=== PATIENT | female | born 1950 | race Caucasian/White ===

== ENCOUNTER → 2017-01-06 | Outpatient (CLI) | payer OTHER, MEDICARE ==
[~2017-01-06] MED LIST: CALCTAB7 PO; FISHOIL PO; HYDR200T5 PO; ZYBKIT PO
--- NOTE | 2017-01-06 12:36 | MAMMOGRAPHY REPORT ---
BILATERAL DIGITAL DIAGNOSTIC MAMMOGRAM TOMOSYNTHESIS WITH CAD AND TARGETED LEFT ULTRASOUND: 01/06/2017 CLINICAL HISTORY: 6 Month Follow-up. TECHNIQUE: Breast tomosynthesis in addition to standard 2D mammography was performed. Current study was also evaluated with a Computer Aided Detection (CAD) system. Bilateral CC and MLO 2-D and bronson synthesis images were obtained. COMPARISON: Comparison is made to exams dated: 07/05/2016 ultrasound - [facility], 07/05/2016 mammogram, 01/05/2016 ultrasound, 01/05/2016 mammogram, 12/25/2015 mammogram, and 12/24/2014 mamm ogram - [facility]. BREAST COMPOSITION: There are scattered areas of fibroglandular density in both breasts. FINDINGS: There are no suspicious masses, calcifications, or areas of architectural distortion seen mammographically. There has been no significant interval change compared to prior exams. The prev iously seen nodular asymmetry within the left slightly inferior breast on the MLO view is less promi nent and appears similar to the 07/05/2016 exam. Targeted ultrasound was performed of the area of the previously seen masses. In the left breast at 12:00 periareolar region, again noted is a hypoechoic circumscribed mass which measures 3 x 2 x 3 mm , stable compared to the 07/05/2016 exam and is benign given the morphology and stability and likely r epresents a complicated cyst. In the left breast at 3:00, 2 cm from the nipple, again noted is a hy poechoic circumscribed parallel mass which is stable dating back to the December 2015 exam, currentl y measuring 5 x 3 x 5 mm, previously measuring 5 x 4 x 5 mm. Given the benign morphology and stabil ity, the mass is considered benign and may represent a complicated cyst versus benign solid mass suc h as a fibroadenoma. A round anechoic benign cyst measuring 3 x 3 mm is again noted in the left josé manuel ast at 3:00, 1 cm from the nipple. IMPRESSION: ACR BI-RADS CATEGORY 2: BENIGN, TARGETED ULTRASOUND ACR BI-RADS CATEGORY 2: BENIGN The previously seen small left breast masses are stable, and are considered benign given the morphol ogy and stability and may represent complicated cysts. There is no mammographic or targeted sonograp hic evidence of malignancy. A 1 year screening mammogram is recommended. The patient has been verba lly notified of the results. Approximately 10% of breast cancers are not detected with mammography. A negative mammographic repor t should not delay biopsy if a clinically suggestive mass is present. Leann Jimenez M.D. ah/:01/06/2017 08:15:40 Barrel Plater: Selena DEJESUS)(Antonia), [facility] letter sent: Normal 1/2 BI-RADS Code: ACR BI-RADS Category 2: Benign Ultrasound BI-RADS: ACR BI-RADS Category 2: Benign
== END | disposition home or self-care (01) ==
LOC: C.MAMM 07:43
PROVIDERS: ATTEND Internal Medicine
DX: N63 Unspecified lump in breast (principal)

== ENCOUNTER → 2018-01-11 | Outpatient (CLI) | payer OTHER, MEDICARE ==
--- NOTE | 2018-01-12 15:08 | MAMMOGRAPHY REPORT ---
BILATERAL DIGITAL SCREENING MAMMOGRAM TOMOSYNTHESIS WITH CAD: 01/11/2018 CLINICAL HISTORY: Routine screening. Patient has no complaints. TECHNIQUE: Breast tomosynthesis in addition to standard 2D mammography was performed. Current study was also evaluated with a Computer Aided Detection (CAD) system. COMPARISON: Comparison is made to exams dated: 01/06/2017 mammogram, 12/25/2015 mammogram, 12/24/2014 ma mmogram, 12/21/2013 mammogram, 12/20/2012 mammogram - [facility], and 07/26/2011 mammo gram. BREAST COMPOSITION: There are scattered areas of fibroglandular density in both breasts. FINDINGS: There are stable asymmetries in the inferior and lateral left breast. No new suspicious ma ss, architectural distortion or cluster of microcalcifications is seen. IMPRESSION: ACR BI-RADS CATEGORY 1: NEGATIVE There is no mammographic evidence of malignancy. A 1 year screening mammogram is recommended. The pa tient will receive written notification of the results. Approximately 10% of breast cancers are not detected with mammography. A negative mammographic report should not delay biopsy if a clinically suggestive mass is present. Shauna Hameed M.D. ay/:01/11/2018 15:48:30 Exercise Physiology Professor: Evelyne CEJA(Lori)(Antonia), [facility] letter sent: Normal 1/2 BI-RADS Code: ACR BI-RADS Category 1: Negative
== END | disposition home or self-care (01) ==
LOC: C.MAMM 14:37
PROVIDERS: ATTEND Internal Medicine
DX: Z12.31 Encounter for screening mammogram for malignant neoplasm of breast (principal)

== ENCOUNTER 2024-10-12 19:00 | Inpatient (IN) ==
[2024-10-12] MEDS: SODIUM CHLORIDE 0.9% 1,000 ML IV ONE (21:28)
[2024-10-12] MEDS: PANTOprazole 80 MG in DEXTROSE 5% 100 ML IV ONE (21:29)
[2024-10-12] MEDS: PANTOPRAZOLE BOLUS/DRIP IV STA (21:34)
[2024-10-12] MEDS: PANTOprazole 40 MG in DEXTROSE 5% MINI-B 100 ML IV SCH (21:47)
[2024-10-12 21:59] LABS: Basophils # (auto) 0.05 K/uL (0.00-0.20); Basophils % (auto) 0.4 %; Eosinophils # (auto) 0.11 K/uL (0.00-0.50); Eosinophils % (auto) 0.9 %; Hematocrit (blood only) 22.2 % (37.0-47.0); Hemoglobin 7.3 g/dl (12.0-16.0); Immature Granulocytes # (auto) 0.23 K/uL (0.01-0.20); Immature Granulocytes % (auto) 1.9 %; Lymphocytes # (auto) 1.67 K/uL (1.20-3.40); Lymphocytes % (auto) 14.1 %; Mean Corpuscular Hemoglobin 30.9 pg (25.0-34.0); Mean Corpuscular Hgb Conc 32.9 g/dL (32.0-36.0); Mean Corpuscular Volume 94.1 fL (80.0-100.0); Mean Platelet Volume 10.3 fL (9.4-12.4); Monocytes # (auto) 0.85 K/uL (0.11-0.59); Monocytes % (auto) 7.2 %; Neutrophils # (auto) 8.97 K/uL (1.40-6.50); Neutrophils % (auto) 75.5 %; Platelet Count 368 K/uL (130-400); RDW Coefficient of Variation 13.6 % (11.5-14.5); RDW Standard Deviation 46.1 fL (36.4-46.3); Red Blood Count 2.36 M/uL (4.20-5.40); White Blood Count 11.88 K/ul (4.8-10.8)
[2024-10-12 22:04] LABS: Albumin Globulin Ratio 1.5 (0.9-2); Albumin Level 3.4 gm/dl (3.4-5.0); BUN Creatinine Ratio 48.1 (10-20); Bilirubin,Total 0.6 mg/dl (0.2-1.0); Creatinine Clr Calc Pharmacy 33.9 ml/min; Globulin 2.2 gm/dl (2.5-4.0); Potassium 4.6 mmol/L (3.5-5.1); Total Protein 5.6 gm/dl (6.0-8.3)
--- NOTE | 2024-10-12 22:15 | History & Physical Report ---
Date of Service October 12, 2024 Assessment & Plan (1) GI bleed: (2) Fracture of head of humerus: (3) Fall: Plan GI bleed - Per patient several dark BMs, feeling feint, weak, and dizzy - Hgb 7.3 in ED, consent for transfusion completed, transfuse Hgb < 7 - 1L NSS given in ED - Maintain 2 large bore IVs, Protonix drip continued - GI consult placed, NPO status - CBC Q6H, CMP QAM Humerus head/neck fracture/Fall - Met with orthopedics on Tuesday - Next appointment with ortho 10/15 - CK ordered - Consider PT/OT History of Present Illness Chief Complaint: GI bleed, dizziness Primary Care Provider: Key Flores DO Katie Roche is a 74 y/o F with a past medical history of cutaneous lupus on hydroxychloroquine, Hx of cancerous polyp s/p removal and yearly colonoscopies, osteoarthritis and recent humerus fracture, arriving to [facility] [place] ED due to dizziness and feeling lightheaded on route to the bathroom when she tripped over a laundry basket and had to lower herself to the floor around 10:30 am. Patient reports that she was unable to get up and had several dark colored BMs until approximately 5pm when her son arrived and was able to transport her to the ED. Patient was recently in the ED last week after she tripped over the same laundry basket and fell on her head and right shoulder causing no head trauma per scans but did have a R. humerus head and neck fracture, and is currently following with orthopedics, with her next appointment on 10/15. Patient reports that last week after discharge she had one incident of nausea and dark colored emesis, but today denies any recent abdominal pain, nausea, and vomiting. Patient also denies chest pain, palpitations, SOB, cough, wheeze, headache and blurry vision. Patient reports that her dizziness and feelings of weakness have resolved, but feels that if she were to sit up quickly or stand symptoms would reoccur. Patient is not currently taking any blood thinners, but reports using Ibuprofen frequently for a few days after her shoulder trauma. Patient also endorses some feelings of reflux and tongue swelling that started after she collapsed in the bathroom this morning. Patient denies these symptoms currently. Allergies Allergy/AdvReac Type Severity Reaction Status Date / Time codeine Allergy Mild itching Verified 09/27/24 09:16 Home Medications Medication Instructions Recorded Confirmed Type bacitracin 500 unit/gram topical 1 applic topical BID PRN Rash 07/20/22 10/12/24 History ointment hydroxychloroquine 200 mg tablet 200 mg PO QAM 09/27/24 10/12/24 History (Plaquenil) lisinopril 20 mg tablet 20 mg PO DAILY 09/27/24 10/12/24 History metformin 500 mg tablet 1,000 mg PO DAILY 09/27/24 10/12/24 History sertraline 25 mg tablet (Zoloft) 25 mg PO DAILY 09/27/24 10/12/24 History Past Med/Surg History Problem List GI bleed Fracture of head of humerus (Acute) Fall (Acute) Dupuytrens contracture Osteoarthritis Acquired deviated nasal septum Medical History Anxiety and depression Diabetes Sleep apnea no compliant with cpap Cutaneous lupus erythematosus Follows [facility] at [facility] - taking Plaquenil Hypertension pt denies Surgical History History of colonoscopy Hx of bilateral cataract extraction History of surgery on wrist right History of knee surgery left History of ankle surgery right -broken History of appendectomy History of tonsillectomy Family History Mother Hypertension Cancer Father Allergies Other No family history of adverse response to anesthesia No family history of bleeding disorder Social History Smoking Status: Former smoker Tobacco Type: Cigarettes Cigarettes Per Day: 1/2 pk/ day; Second Hand Exposure: No; Do You Dip or Chew Tobacco: No; Hx Alcohol Use: Yes Alcohol type: hard liquor Hx Substance Use: No Preferred Language: Tanzanian Communication Ability: Effective Nuclear Reactor Operator Required: No Beliefs That Will Affect Care: None Current Living Situation: Alone Feels Safe at Home: Yes Assistive Devices: None Review of Systems Review of Systems: All systems reviewed & are unremarkable except as noted in HPI & below Physical Exam Physical Exam: General: patient resting comfortably, NAD, non-toxic in appearance, answers questions appropriately. Skin: warm, dry, intact HEENT: NC/AT, anicteric sclera, conjunctiva without injection, moist mucus membranes. Heart: +S1/S2, regular, no m/r/g Lungs: equal air entry bilaterally, no rales/rhonchi/wheezes Abd: +BS, soft, NT/ND Ext: warm, no clubbing/cyanosis or edema Neuro: nonfocal, speech intact, no facial droop, moving all extremities. Results & Data Results & Data Vital Signs (Past 12 Hours) Vital Signs Temp Pulse Pulse Resp BP BP Pulse Ox 10/12/24 21:05 98 H 18 140/80 100 10/12/24 21:05 98 H 20 100 10/12/24 19:10 93 H 17 130/91 100 10/12/24 19:10 36.5 C 94 H 18 144/68 H 10/12/24 19:06 96 H O2 Del Method 10/12/24 21:05 Room Air 10/12/24 21:05 Room Air 10/12/24 19:10 Room Air 10/12/24 19:10 Room Air 10/12/24 19:06 Laboratory Results Laboratory Results WBC 11.88 K/ul (4.8-10.8) H 10/12/24 19:07 RBC 2.36 M/uL (4.20-5.40) L 10/12/24 19:07 Hgb 7.3 g/dl (12.0-16.0) L 10/12/24 19:07 Hct 22.2 % (37.0-47.0) L 10/12/24 19:07 MCV 94.1 fL (80.0-100.0) 10/12/24 19:07 MCH 30.9 pg (25.0-34.0) 10/12/24 19:07 MCHC 32.9 g/dL (32.0-36.0) 10/12/24 19:07 RDW Std Deviation 46.1 fL (36.4-46.3) 10/12/24 19:07 RDW Coeff of Melody 13.6 % (11.5-14.5) 10/12/24 19:07 Plt Count 368 K/uL (130-400) 10/12/24 19:07 MPV 10.3 fL (9.4-12.4) 10/12/24 19:07 Immature Gran % (Auto) 1.9 % 10/12/24 19:07 Neut % (Auto) 75.5 % 10/12/24 19:07 Lymph % (Auto) 14.1 % 10/12/24 19:07 [place] % (Auto) 7.2 % 10/12/24 19:07 Eos % (Auto) 0.9 % 10/12/24 19:07 Baso % (Auto) 0.4 % 10/12/24 19:07 Neut # (Auto) 8.97 K/uL (1.40-6.50) H 10/12/24 19:07 Lymph # (Auto) 1.67 K/uL (1.20-3.40) 10/12/24 19:07 [place] # (Auto) 0.85 K/uL (0.11-0.59) H 10/12/24 19:07 Eos # (Auto) 0.11 K/uL (0.00-0.50) 10/12/24 19:07 Baso # (Auto) 0.05 K/uL (0.00-0.20) 10/12/24 19:07 Immature Gran # (Auto) 0.23 K/uL (0.01-0.20) H 10/12/24 19:07 Polychromasia 1+ 10/12/24 19:07 PT 11.6 Seconds (9.0-12.0) 10/12/24 19:07 INR 1.1 (0.9-1.1) 10/12/24 19:07 APTT 20 Seconds (21-31) L 10/12/24 19:07 PTT Ratio 0.7 10/12/24 19:07 Sodium 134 mmol/L (136-145) L 10/12/24 19:07 Potassium 4.6 mmol/L (3.5-5.1) 10/12/24 19:07 Chloride 101 mmol/L (98-107) 10/12/24 19:07 Carbon Dioxide 20 mmol/L (21-32) L 10/12/24 19:07 Anion Gap 13 (3-11) H 10/12/24 19:07 BUN 78 mg/dl (6-23) H 10/12/24 19:07 Creatinine 1.62 mg/dl (0.6-1.2) H 10/12/24 19:07 Est Cr Clr Drug Dosing 33.9 ml/min 10/12/24 19:07 eGFR 33.34 10/12/24 19:07 BUN/Creatinine Ratio 48.1 (10-20) H 10/12/24 19:07 Glucose 151 mg/dl (70-99(Fasting)) H 10/12/24 19:07 Calcium 9.0 mg/dl (8.6-10.3) 10/12/24 19:07 Total Bilirubin 0.6 mg/dl (0.2-1.0) 10/12/24 19:07 AST 39 U/L (13-39) 10/12/24 19:07 ALT 47 U/L (7-52) 10/12/24 19:07 Alkaline Phosphatase 47 U/L (34-104) 10/12/24 19:07 Total Protein 5.6 gm/dl (6.0-8.3) L 10/12/24 19:07 Albumin 3.4 gm/dl (3.4-5.0) 10/12/24 19:07 Globulin 2.2 gm/dl (2.5-4.0) L 10/12/24 19:07 Albumin/Globulin Ratio 1.5 (0.9-2) 10/12/24 19:07 POC Stool Occult Blood Positive (Negative) A 10/12/24 21:31 Blood Type A Negative 10/12/24 21:12 Antibody Screen NEGATIVE 10/12/24 21:12 Supervising Physician Co-Signing Physician Notes Patient seen and examined, chart reviewed, case discussed with Dr. Cabral and I agree with the assessment and plan as above. In brief, patient was recently seen in the ER following a fall resulting in a right humerus fracture with sling in place. She has taken several doses of Excedrin for pain management but has overall been taking Tylenol. Today she had multiple episodes of black stools, weakness with inability to get off the floor. No nausea or vomiting. No abdominal pain. NO CP/SOB/dizziness or syncope. No anti-platelet or anticoagulation. No history of liver disease. Patient had a routine screening colonoscopy in the Spring 2023 and had a polyp removed which she was told was malignant - has followup [place] scheduled for 1 year. On exam she is resting comfortably, NAD Skin - mild pallor noted of skin, palms and oral mucosa HEENT - MMM, Neck supple Heart - +S1/S2, regular, tachycardic Lungs - CTA Abd - +BS, soft, NT/ND Ext - warm, well perfused, no clubbing/cyanosis or edema Labs and images reviewed. Patient with normochromic/normocytic anemia with Hgb=7.3 - unknown baseline. BUN elevated at 78 Assessment/Plan 74yo female presenting with weakness, melenic stools - suspect GIB, likely upper GI source. Patient is not on blood thinners or anti-platelet agents. No known liver disease. -Admit to medical with telemetry -Maintain 2 PIVs -Keep NPO -Continue Protonix gtt -Trend CBC q 6 hours - transfuse for ongoing bleed, symptomatic anemia or Hgb < 7. Consent obtained -GI consultation appreciated -Remainder as above Resident Activity Tracking Resident Involvement: Resident Care Provided Care Provided: Adult Hospital Medicine (2) Fracture of head of humerus Encounter type: initial encounter Fracture type: closed Laterality: right Qualified Code(s): S42.291A - Other displaced fracture of upper end of right humerus, initial encounter for closed fracture (3) Fall Encounter type: initial encounter Qualified Code(s): W19.XXXA - Unspecified fall, initial encounter
[2024-10-12 22:21] LABS: Polychromasia 1+
[2024-10-12 22:38] LABS: INR 1.1 (0.9-1.1); Partial Thromboplastin Ratio 0.7; Partial Thromboplastin Time 20 Seconds (21-31); Prothrombin Time 11.6 Seconds (9.0-12.0)
--- NOTE | 2024-10-13 00:27 | Billing Data ---
Date of Service October 12, 2024 Coding Level of Care Code 57754 INT INP/OBS CARE
[2024-10-13] MEDS ORDERED: ONDANSETRON INJ 2 MG/ML 2 ML VIAL IV PRN (01:15)
[2024-10-13 01:44] LABS: Hematocrit (blood only) 19.7 % (37.0-47.0); Hemoglobin 6.6 g/dl (12.0-16.0); Mean Corpuscular Hemoglobin 31.3 pg (25.0-34.0); Mean Corpuscular Hgb Conc 33.5 g/dL (32.0-36.0); Mean Corpuscular Volume 93.4 fL (80.0-100.0); Mean Platelet Volume 9.8 fL (9.4-12.4); Platelet Count 362 K/uL (130-400); RDW Coefficient of Variation 13.6 % (11.5-14.5); RDW Standard Deviation 46.5 fL (36.4-46.3); Red Blood Count 2.11 M/uL (4.20-5.40); White Blood Count 12.23 K/ul (4.8-10.8)
[2024-10-13] MEDS ORDERED: SODIUM CHLORIDE 0.9% 50 ML IV PRN ×2 (01:47→08:51)
[2024-10-13] MEDS ORDERED: SODIUM CHLORIDE 0.9% 100 ML IV PRN ×2 (01:47→08:51)
[2024-10-13 01:56] LABS: Albumin Globulin Ratio 1.5 (0.9-2); Albumin Level 3.2 gm/dl (3.4-5.0); BUN Creatinine Ratio 46.5 (10-20); Bilirubin,Total 0.5 mg/dl (0.2-1.0); Calcium 8.7 mg/dl (8.6-10.3); Creatinine Clr Calc Pharmacy 34.6 ml/min; Globulin 2.1 gm/dl (2.5-4.0); Potassium 4.6 mmol/L (3.5-5.1); Total Protein 5.3 gm/dl (6.0-8.3)
--- NOTE | 2024-10-13 03:17 | Emergency Department Note ---
Impression & Plan Upper gastrointestinal hemorrhage, Fall ED Provider Note CHIEF COMPLAINT: GI bleed HISTORY OF PRESENT ILLNESS: This 74-year-old female patient with PMH of ETOH use heavily presents to the emergency department with complaints of a GI bleed. The patient states she has been passing dark stools today. She has not had a bowel movement in about a week, but was drinking heavily last week after she found out that [place] won the election. Patient proceeded to fall and injure herself, fracturing her right shoulder. Patient is currently in a sling. She states she has been taking ibuprofen for the pain quite a bit recently. REVIEW OF SYSTEMS: A review of systems was performed with positives and pertinent negatives listed in the history of present illness. 10 systems were reviewed and are otherwise negative. ALLERGIES: see below MEDICATIONS: see below PMH: see below SOCIAL HISTORY: see below DDx: Esophageal varices, peptic ulcer disease, esophageal mass, probably alcoholic liver disease, dehydration, among others. PHYSICAL EXAM: Vital signs reviewed. General: Chronically ill-appearing 74-year-old female, in no significant distress. BLE with dried melanotic stool HEENT: No scleral icterus, PERRLA, neck supple. MMM Cardiovascular: Regular rate and rhythm, no extra sounds. Pulmonary: Clear to auscultation bilaterally, normal work of breathing. Abdomen: Soft, nontender, nondistended, positive bowel sounds. Musculoskeletal: Atraumatic, no peripheral edema. Rectal: Melanotic stool, no gross blood. Guaiac positive. Neurologic: Patient awake alert and oriented x 3, speech is clear Skin: Warm, dry, no rash EMERGENCY DEPARTMENT COURSE/MDM: This patient was evaluated and appeared to be in no significant distress. IV access was obtained and laboratory work was drawn. Patient was placed on the monitoring and evaluation advisor is noted to be in a normal sinus rhythm. Hemoccult is positive. Patient was started on a Protonix bolus and drip. Hemoglobin is noted to be 9.1. Type and screen have been examined. Patient was hydrated with normal saline solution. Case has been discussed with hospitalist service, Dr. Duran, who will evaluate the patient for admission and further management. Patient and family are aware of plan and agreed. MONITORING: An order for cardiac monitoring was placed and the patient is noted to be in a normal sinus rhythm at 98 beats per minute. EKG: To my interpretation reveals normal sinus rhythm at 95 bpm. QTc of 469. No PVC, no PAC. DISPOSITION: Admission Past Med/Surg History Problem List (Updated 10/14/24 @ 01:08 by Gifty Moore MD) Upper gastrointestinal hemorrhage (Acute) GI bleed Fracture of head of humerus (Acute) Fall (Acute) Dupuytrens contracture Osteoarthritis Acquired deviated nasal septum Medical History Anxiety and depression Diabetes Sleep apnea no compliant with cpap Cutaneous lupus erythematosus Follows PA at [facility] - taking Plaquenil Hypertension pt denies Surgical History History of colonoscopy Hx of bilateral cataract extraction History of surgery on wrist right History of knee surgery left History of ankle surgery right -broken History of appendectomy History of tonsillectomy Family History Mother Hypertension Cancer Father Allergies Other No family history of adverse response to anesthesia No family history of bleeding disorder Social History Smoking Status: Former smoker Tobacco Type: Cigarettes Cigarettes Per Day: 1/2 pk/ day; Smoking End Date: approximately 3 years ago; Second Hand Exposure: No; Do You Dip or Chew Tobacco: No; Hx Alcohol Use: Yes Alcohol type: hard liquor Hx Substance Use: No Preferred Language: Faroese Communication Ability: Effective Industrial [employer] Supervisor Required: No Beliefs That Will Affect Care: None Current Living Situation: Family Current Living Situation Comment: lives with son Other Information That Helps Us Care for You: No Feels Safe at Home: Yes Safety Concerns: Feels Safe At This Time Assistive Devices: Glasses Allergies Allergies Allergy/AdvReac Type Severity Reaction Status Date / Time codeine Allergy Mild itching Verified 09/27/24 09:16 Home Meds Home Medications Medication Instructions Recorded Confirmed bacitracin 500 unit/gram topical 1 applic topical BID PRN Rash 07/20/22 10/12/24 ointment hydroxychloroquine 200 mg tablet 200 mg PO QAM 09/27/24 10/12/24 (Plaquenil) lisinopril 20 mg tablet 20 mg PO DAILY 09/27/24 10/12/24 metformin 500 mg tablet 1,000 mg PO DAILY 09/27/24 10/12/24 sertraline 25 mg tablet (Zoloft) 25 mg PO DAILY 09/27/24 10/12/24 Results & Data (ED) Vital Signs Vital Signs - 24 hr 10/13/24 01:13 10/13/24 01:17 10/13/24 01:30 Temperature 36.8 C Temperature Source Oral Pulse Rate 97 H Pulse Rate [Apical] 95 H Respiratory Rate 18 Respiratory Effort / Characteristics Non-Labored Spontaneous Respiratory Depth Normal Respiratory Pattern Regular Blood Pressure Blood Pressure [Left Arm] 105/62 Blood Pressure Mean Blood Pressure Mean [Left Arm] 76 Blood Pressure Position Blood Pressure Position [Left Arm] Lying Pulse Oximetry 98 Oxygen Delivery Method Room Air Room Air EWS Level of Consciousness - Last Result EWS Temperature - Last Result EWS Respiratory Rate - Last Result EWS Oxygen Saturation - Last Result EWS Oxygen in Use - Last Result EWS Score EWS Clinical Risk 10/13/24 02:31 10/13/24 02:52 10/13/24 02:53 Temperature 36.6 C 36.5 C Temperature Source Axillary Axillary Pulse Rate 93 H 100 H Pulse Rate [Apical] Respiratory Rate 18 16 Respiratory Effort / Characteristics Respiratory Depth Respiratory Pattern Blood Pressure 94/67 L 91/57 L Blood Pressure [Left Arm] Blood Pressure Mean 76 68 Blood Pressure Mean [Left Arm] Blood Pressure Position Lying Lying Blood Pressure Position [Left Arm] Pulse Oximetry 98 97 Oxygen Delivery Method EWS Level of Consciousness - Last Result Spontaneously Alert EWS Temperature - Last Result 36.6 EWS Respiratory Rate - Last Result 18 EWS Oxygen Saturation - Last Result 98 EWS Oxygen in Use - Last Result No EWS Score 3 EWS Clinical Risk Moderate Risk 10/13/24 03:07 10/13/24 03:08 10/13/24 03:08 Temperature 36.9 C 36.9 C Temperature Source Oral Axillary Pulse Rate 96 H 96 H Pulse Rate [Apical] Respiratory Rate 18 18 Respiratory Effort / Characteristics Respiratory Depth Respiratory Pattern Blood Pressure 110/74 110/74 Blood Pressure [Left Arm] Blood Pressure Mean 86 86 Blood Pressure Mean [Left Arm] Blood Pressure Position Semi-fowlers Blood Pressure Position [Left Arm] Pulse Oximetry 97 97 Oxygen Delivery Method EWS Level of Consciousness - Last Result Spontaneously Alert EWS Temperature - Last Result 36.9 EWS Respiratory Rate - Last Result 18 EWS Oxygen Saturation - Last Result 97 EWS Oxygen in Use - Last Result No EWS Score 2 EWS Clinical Risk Low Risk 10/13/24 03:38 10/13/24 04:38 10/13/24 05:31 Temperature 36.7 C 36.8 C 36.6 C Temperature Source Axillary Axillary Axillary Pulse Rate 93 H 95 H 98 H Pulse Rate [Apical] Respiratory Rate 18 16 18 Respiratory Effort / Characteristics Respiratory Depth Respiratory Pattern Blood Pressure 128/81 132/80 129/81 Blood Pressure [Left Arm] Blood Pressure Mean 96 97 97 Blood Pressure Mean [Left Arm] Blood Pressure Position Semi-fowlers Semi-fowlers Blood Pressure Position [Left Arm] Pulse Oximetry 99 100 96 Oxygen Delivery Method EWS Level of Consciousness - Last Result EWS Temperature - Last Result EWS Respiratory Rate - Last Result EWS Oxygen Saturation - Last Result EWS Oxygen in Use - Last Result EWS Score EWS Clinical Risk 10/13/24 05:51 10/13/24 06:10 10/13/24 06:25 Temperature 36.5 C 36.5 C 36.5 C Temperature Source Oral Oral Oral Pulse Rate 84 89 94 H Pulse Rate [Apical] Respiratory Rate 18 18 18 Respiratory Effort / Characteristics Respiratory Depth Respiratory Pattern Blood Pressure 121/71 125/72 130/83 Blood Pressure [Left Arm] Blood Pressure Mean 87 89 98 Blood Pressure Mean [Left Arm] Blood Pressure Position Blood Pressure Position [Left Arm] Pulse Oximetry 99 98 95 Oxygen Delivery Method EWS Level of Consciousness - Last Result EWS Temperature - Last Result EWS Respiratory Rate - Last Result EWS Oxygen Saturation - Last Result EWS Oxygen in Use - Last Result EWS Score EWS Clinical Risk 10/13/24 06:55 10/13/24 06:55 10/13/24 07:00 Temperature 36.5 C 36.7 C Temperature Source Oral Axillary Pulse Rate 94 H 93 H 88 Pulse Rate [Apical] Respiratory Rate 20 18 Respiratory Effort / Characteristics Respiratory Depth Respiratory Pattern Blood Pressure 122/78 124/77 Blood Pressure [Left Arm] Blood Pressure Mean 92 92 Blood Pressure Mean [Left Arm] Blood Pressure Position Semi-fowlers Blood Pressure Position [Left Arm] Pulse Oximetry 100 99 Oxygen Delivery Method EWS Level of Consciousness - Last Result EWS Temperature - Last Result EWS Respiratory Rate - Last Result EWS Oxygen Saturation - Last Result EWS Oxygen in Use - Last Result EWS Score EWS Clinical Risk 10/13/24 07:55 Temperature 36.5 C Temperature Source Axillary Pulse Rate 95 H Pulse Rate [Apical] Respiratory Rate 16 Respiratory Effort / Characteristics Respiratory Depth Respiratory Pattern Blood Pressure 116/78 Blood Pressure [Left Arm] Blood Pressure Mean 90 Blood Pressure Mean [Left Arm] Blood Pressure Position Lying Blood Pressure Position [Left Arm] Pulse Oximetry 97 Oxygen Delivery Method EWS Level of Consciousness - Last Result EWS Temperature - Last Result EWS Respiratory Rate - Last Result EWS Oxygen Saturation - Last Result EWS Oxygen in Use - Last Result EWS Score EWS Clinical Risk Home Medications Current Medication List: was personally reviewed by me Laboratory Data Attestation: I reviewed the patient's lab results. 10/13/24 19:32 10/13/24 01:18 Lab Results 10/12/24 10/12/24 10/12/24 Range/Units 19:07 21:12 21:31 WBC 11.88 H (4.8-10.8) K/ul RBC 2.36 L (4.20-5.40) M/uL Hgb 7.3 L (12.0-16.0) g/dl Hct 22.2 L (37.0-47.0) % MCV 94.1 (80.0-100.0) fL MCH 30.9 (25.0-34.0) pg MCHC 32.9 (32.0-36.0) g/dL RDW Std Deviation 46.1 (36.4-46.3) fL RDW Coeff of Melody 13.6 (11.5-14.5) % Plt Count 368 (130-400) K/uL MPV 10.3 (9.4-12.4) fL Immature Gran % (Auto) 1.9 % Neut % (Auto) 75.5 % Lymph % (Auto) 14.1 % [place] % (Auto) 7.2 % Eos % (Auto) 0.9 % Baso % (Auto) 0.4 % Neut # (Auto) 8.97 H (1.40-6.50) K/uL Lymph # (Auto) 1.67 (1.20-3.40) K/uL [place] # (Auto) 0.85 H (0.11-0.59) K/uL Eos # (Auto) 0.11 (0.00-0.50) K/uL Baso # (Auto) 0.05 (0.00-0.20) K/uL Immature Gran # (Auto) 0.23 H (0.01-0.20) K/uL Polychromasia 1+ PT 11.6 (9.0-12.0) Seconds INR 1.1 (0.9-1.1) APTT 20 L (21-31) Seconds PTT Ratio 0.7 Sodium 134 L (136-145) mmol/L Potassium 4.6 (3.5-5.1) mmol/L Chloride 101 (98-107) mmol/L Carbon Dioxide 20 L (21-32) mmol/L Anion Gap 13 H (3-11) BUN 78 H (6-23) mg/dl Creatinine 1.62 H (0.6-1.2) mg/dl Est Cr Clr Drug Dosing 33.9 ml/min eGFR 33.34 BUN/Creatinine Ratio 48.1 H (10-20) Glucose 151 H (70-99(Fasting)) mg/dl Calcium 9.0 (8.6-10.3) mg/dl Total Bilirubin 0.6 (0.2-1.0) mg/dl AST 39 (13-39) U/L ALT 47 (7-52) U/L Alkaline Phosphatase 47 (34-104) U/L Total Creatine Kinase 235 H (26-192) U/L Total Protein 5.6 L (6.0-8.3) gm/dl Albumin 3.4 (3.4-5.0) gm/dl Globulin 2.2 L (2.5-4.0) gm/dl Albumin/Globulin Ratio 1.5 (0.9-2) POC Stool Occult Blood Positive A (Negative) Blood Type A Negative Blood Type Recheck Antibody Screen NEGATIVE Crossmatch See Detail 10/13/24 10/13/24 Range/Units 01:18 09:32 WBC 12.23 H 13.01 H (4.8-10.8) K/ul RBC 2.11 L 3.12 L (4.20-5.40) M/uL Hgb 6.6 L* 9.3 L (12.0-16.0) g/dl Hct 19.7 L* 27.3 L (37.0-47.0) % MCV 93.4 87.5 D (80.0-100.0) fL MCH 31.3 29.8 (25.0-34.0) pg MCHC 33.5 34.1 (32.0-36.0) g/dL RDW Std Deviation 46.5 H 45.7 (36.4-46.3) fL RDW Coeff of Melody 13.6 14.5 (11.5-14.5) % Plt Count 362 283 (130-400) K/uL MPV 9.8 9.9 (9.4-12.4) fL Immature Gran % (Auto) % Neut % (Auto) % Lymph % (Auto) % [place] % (Auto) % Eos % (Auto) % Baso % (Auto) % Neut # (Auto) (1.40-6.50) K/uL Lymph # (Auto) (1.20-3.40) K/uL H[place] # (Auto) (0.11-0.59) K/uL Eos # (Auto) (0.00-0.50) K/uL Baso # (Auto) (0.00-0.20) K/uL Immature Gran # (Auto) (0.01-0.20) K/uL Polychromasia PT (9.0-12.0) Seconds INR (0.9-1.1) APTT (21-31) Seconds PTT Ratio Sodium 135 L (136-145) mmol/L Potassium 4.6 (3.5-5.1) mmol/L Chloride 106 (98-107) mmol/L Carbon Dioxide 21 (21-32) mmol/L Anion Gap 8 (3-11) BUN 74 H (6-23) mg/dl Creatinine 1.59 H (0.6-1.2) mg/dl Est Cr Clr Drug Dosing 34.6 ml/min eGFR 34.10 BUN/Creatinine Ratio 46.5 H (10-20) Glucose 131 H (70-99(Fasting)) mg/dl Calcium 8.7 (8.6-10.3) mg/dl Total Bilirubin 0.5 (0.2-1.0) mg/dl AST 37 (13-39) U/L ALT 44 (7-52) U/L Alkaline Phosphatase 45 (34-104) U/L Total Creatine Kinase (26-192) U/L Total Protein 5.3 L (6.0-8.3) gm/dl Albumin 3.2 L (3.4-5.0) gm/dl Globulin 2.1 L (2.5-4.0) gm/dl Albumin/Globulin Ratio 1.5 (0.9-2) POC Stool Occult Blood (Negative) Blood Type Blood Type Recheck A Negative Antibody Screen Crossmatch Administered Medications Hydroxychloroquine Sulfate (Hydroxychloroquine Sulfate 200 Mg Tab) 200 mg PO QAM WILLIAM Stop: 11/12/24 08:59 Last Admin: 10/13/24 08:37 Dose: 200 mg Documented By: ASHER Pantoprazole Sodium 40 mg/ (Dextrose) 100 mls @ 20 mls/hr IV Q5H WILLIAM Stop: 11/11/24 21:14 Last Admin: 10/13/24 23:05 Dose: 8 mg/hr, 20 mls/hr Documented By: Infusion: 10/13/24 23:04 Dose: Infused Documented By: Admin: 10/13/24 18:04 Dose: 8 mg/hr, 20 mls/hr Documented By: Infusion: 10/13/24 18:04 Dose: Infused Documented By: Admin: 10/13/24 13:18 Dose: 8 mg/hr, 20 mls/hr Documented By: Infusion: 10/13/24 13:18 Dose: Infused Documented By: Admin: 10/13/24 08:36 Dose: 8 mg/hr, 20 mls/hr Documented By: Infusion: 10/13/24 08:35 Dose: Infused Documented By: Admin: 10/13/24 03:10 Dose: 8 mg/hr, 20 mls/hr Documented By: Infusion: 10/13/24 02:47 Dose: Infused Documented By: Admin: 10/12/24 21:47 Dose: 8 mg/hr, 20 mls/hr Documented By: OZZIE Sertraline HCl (Sertraline Hcl 50 Mg Tablet) 25 mg PO DAILY WILLIAM Stop: 11/12/24 08:59 Last Admin: 10/13/24 09:24 Dose: 25 mg Documented By: ASHER Discontinued Medications Pantoprazole Sodium 80 mg/ (Dextrose) 120 mls @ 480 mls/hr IV NOW ONE Stop: 10/12/24 21:13 Last Infusion: 10/12/24 21:47 Dose: Infused Documented By: Admin: 10/12/24 21:29 Dose: 480 mls/hr Documented By: OZZIE Sodium Chloride (Nss) 1,000 mls @ 999 mls/hr IV .Q1H1M ONE Stop: 10/12/24 22:04 Last Infusion: 10/12/24 22:30 Dose: Infused Documented By: Admin: 10/12/24 21:28 Dose: 999 mls/hr Documented By: OZZIE Pantoprazole Sodium (Pantoprazole Bolus/Drip) 1 each IV NOW STA Stop: 10/12/24 21:00 Last Admin: 10/12/24 21:34 Dose: Not Given Documented By: OZZIE Discharge Plan Visit Data Chief Complaint: GI Bleed Stated Complaint: GI Bleed, Fall, Dizziness ED Provider: Gifty Mooer Discharge Problem: Upper gastrointestinal hemorrhage, Fall Patient Disposition: Admitted As Inpatient Discharge Instructions Interventions: ED Discharge Assessment Last Done: 10/13/24 00:13
[2024-10-13] MEDS: HYDROXYCHLOROQUINE SULFATE 200 MG TAB PO SCH (08:37)
--- NOTE | 2024-10-13 09:18 | Gastrointestinal Consultation ---
Date of Consultation October 13, 2024 Assessment & Plan (1) GI bleed: Pleasant lady with short lived episode of melena. Suspect GI bleed and suspect she has taken NSAIDs. She does need EGD. With hemoglobin 6.6 she probably should be transfused above 7 or even 8 before getting anesthesia. She seems to have stopped bleeding without having melena in over 12 hours. Will plan to do this tomorrow and let her get resuscitated today. She agrees History of Present Illness Reason for Consultation: GI bleeding Attending Physician: Patricia Mims MD History of Present Illness 74 year old female who recently had a fall and has a humerus fracture. Yesterday she started having diarrhea and describes black loose stools for about four hours. The black stools have stopped since then and she had no bowel movements since then. She denies abdominal pain. She denies using ibuprofen to me and states she mainly used tylenol for pain. She did take some other meds for pain but she doesn't know what it was. She denies prior history of stomach problems but she has had an EGD in the past for stomach pain by Dr. Moreno but she doesn't know what he found. H/H are 6.6 today. Allergies Allergy/AdvReac Type Severity Reaction Status Date / Time codeine Allergy Mild itching Verified 09/27/24 09:16 Home Medications Medication Instructions Recorded Confirmed Type bacitracin 500 unit/gram topical 1 applic topical BID PRN Rash 07/20/22 10/12/24 History ointment hydroxychloroquine 200 mg tablet 200 mg PO QAM 09/27/24 10/12/24 History (Plaquenil) lisinopril 20 mg tablet 20 mg PO DAILY 09/27/24 10/12/24 History metformin 500 mg tablet 1,000 mg PO DAILY 09/27/24 10/12/24 History sertraline 25 mg tablet (Zoloft) 25 mg PO DAILY 09/27/24 10/12/24 History Patient History Medical History Anxiety and depression Diabetes Sleep apnea no compliant with cpap Cutaneous lupus erythematosus Follows PA at [facility] - taking Plaquenil Hypertension pt denies Surgical History History of colonoscopy Hx of bilateral cataract extraction History of surgery on wrist right History of knee surgery left History of ankle surgery right -broken History of appendectomy History of tonsillectomy Family History Mother Hypertension Cancer Father Allergies Other No family history of adverse response to anesthesia No family history of bleeding disorder Social History Smoking Status: Former smoker Tobacco Type: Cigarettes Cigarettes Per Day: 1/2 pk/ day; Second Hand Exposure: No; Do You Dip or Chew Tobacco: No; Hx Alcohol Use: Yes Alcohol type: hard liquor Hx Substance Use: No Preferred Language: Romansh Communication Ability: Effective [employer] Advisor Required: No Beliefs That Will Affect Care: None Current Living Situation: Family Current Living Situation Comment: lives with son Feels Safe at Home: Yes Assistive Devices: Glasses Review of Systems Review of Systems: All systems reviewed & are unremarkable except as noted in HPI & below Physical Exam Constitutional: WD/WN, vitals as above Neck: trachea midline, no thyromegaly Respiratory: normal respiratory effort, lungs clear to auscultation Cardiovascular: RRR, no murmur, no edema Gastrointestinal (Abdomen): normal bowel sounds, soft, nontender, no hepatosplenomegaly Results & Data Vital Signs (Past 12 Hours) Vital Signs Temp Pulse Pulse Resp BP BP Pulse Ox 10/13/24 07:55 36.5 C 95 H 16 116/78 97 10/13/24 07:00 88 10/13/24 06:55 36.7 C 93 H 18 124/77 99 10/13/24 06:55 36.5 C 94 H 20 122/78 100 10/13/24 06:25 36.5 C 94 H 18 130/83 95 10/13/24 06:10 36.5 C 89 18 125/72 98 10/13/24 05:51 36.5 C 84 18 121/71 99 10/13/24 05:31 36.6 C 98 H 18 129/81 96 10/13/24 04:38 36.8 C 95 H 16 132/80 100 10/13/24 03:38 36.7 C 93 H 18 128/81 99 10/13/24 03:08 36.9 C 96 H 18 110/74 97 10/13/24 03:07 36.9 C 96 H 18 110/74 97 10/13/24 02:53 36.5 C 100 H 16 91/57 L 97 10/13/24 02:31 36.6 C 93 H 18 94/67 L 98 10/13/24 01:30 10/13/24 01:17 36.8 C 95 H 18 105/62 98 10/13/24 01:13 97 H 10/13/24 00:13 36.8 C 101 H 19 102/65 100 10/13/24 00:00 99 H 16 100 10/12/24 23:30 98 H 15 100 10/12/24 23:04 98 H 10/12/24 23:03 98 H 18 100 10/12/24 23:00 130/73 10/12/24 22:57 101 H 13 100 10/12/24 22:30 100 H 17 100 10/12/24 22:12 103 H 19 100 10/12/24 22:00 163/75 H 10/12/24 22:00 163/75 H 10/12/24 22:00 98 H 16 163/75 H 100 10/12/24 21:42 94 H 17 100 10/12/24 21:36 94 H 18 100 O2 Del Method 10/13/24 07:55 10/13/24 07:00 10/13/24 06:55 10/13/24 06:55 10/13/24 06:25 10/13/24 06:10 10/13/24 05:51 10/13/24 05:31 10/13/24 04:38 10/13/24 03:38 10/13/24 03:08 10/13/24 03:07 10/13/24 02:53 10/13/24 02:31 10/13/24 01:30 Room Air 10/13/24 01:17 Room Air 10/13/24 01:13 10/13/24 00:13 Room Air 10/13/24 00:00 10/12/24 23:30 10/12/24 23:04 10/12/24 23:03 10/12/24 23:00 10/12/24 22:57 10/12/24 22:30 10/12/24 22:12 10/12/24 22:00 10/12/24 22:00 10/12/24 22:00 Room Air 10/12/24 21:42 10/12/24 21:36 Laboratory Results 10/13/24 10/12/24 10/12/24 Range/Units 01:18 21:31 21:12 WBC 12.23 H (4.8-10.8) K/ul RBC 2.11 L (4.20-5.40) M/uL Hgb 6.6 L* (12.0-16.0) g/dl Hct 19.7 L* (37.0-47.0) % MCV 93.4 (80.0-100.0) fL MCH 31.3 (25.0-34.0) pg MCHC 33.5 (32.0-36.0) g/dL RDW Std Deviation 46.5 H (36.4-46.3) fL RDW Coeff of Melody 13.6 (11.5-14.5) % Plt Count 362 (130-400) K/uL MPV 9.8 (9.4-12.4) fL Immature Gran % (Auto) % Neut % (Auto) % Lymph % (Auto) % [place]key % (Auto) % Eos % (Auto) % Baso % (Auto) % Neut # (Auto) (1.40-6.50) K/uL Lymph # (Auto) (1.20-3.40) K/uL Sharkey # (Auto) (0.11-0.59) K/uL Eos # (Auto) (0.00-0.50) K/uL Baso # (Auto) (0.00-0.20) K/uL Immature Gran # (Auto) (0.01-0.20) K/uL Polychromasia PT (9.0-12.0) Seconds INR (0.9-1.1) APTT (21-31) Seconds PTT Ratio Sodium 135 L (136-145) mmol/L Potassium 4.6 (3.5-5.1) mmol/L Chloride 106 (98-107) mmol/L Carbon Dioxide 21 (21-32) mmol/L Anion Gap 8 (3-11) BUN 74 H (6-23) mg/dl Creatinine 1.59 H (0.6-1.2) mg/dl Est Cr Clr Drug Dosing 34.6 ml/min eGFR 34.10 BUN/Creatinine Ratio 46.5 H (10-20) Glucose 131 H (70-99(Fasting)) mg/dl Calcium 8.7 (8.6-10.3) mg/dl Total Bilirubin 0.5 (0.2-1.0) mg/dl AST 37 (13-39) U/L ALT 44 (7-52) U/L Alkaline Phosphatase 45 (34-104) U/L Total Creatine Kinase (26-192) U/L Total Protein 5.3 L (6.0-8.3) gm/dl Albumin 3.2 L (3.4-5.0) gm/dl Globulin 2.1 L (2.5-4.0) gm/dl Albumin/Globulin Ratio 1.5 (0.9-2) POC Stool Occult Blood Positive A (Negative) Blood Type A Negative Blood Type Recheck A Negative Antibody Screen NEGATIVE Crossmatch See Detail 10/12/24 Range/Units 19:07 WBC 11.88 H (4.8-10.8) K/ul RBC 2.36 L (4.20-5.40) M/uL Hgb 7.3 L (12.0-16.0) g/dl Hct 22.2 L (37.0-47.0) % MCV 94.1 (80.0-100.0) fL MCH 30.9 (25.0-34.0) pg MCHC 32.9 (32.0-36.0) g/dL RDW Std Deviation 46.1 (36.4-46.3) fL RDW Coeff of Melody 13.6 (11.5-14.5) % Plt Count 368 (130-400) K/uL MPV 10.3 (9.4-12.4) fL Immature Gran % (Auto) 1.9 % Neut % (Auto) 75.5 % Lymph % (Auto) 14.1 % Sharkey % (Auto) 7.2 % Eos % (Auto) 0.9 % Baso % (Auto) 0.4 % Neut # (Auto) 8.97 H (1.40-6.50) K/uL Lymph # (Auto) 1.67 (1.20-3.40) K/uL Sharkey # (Auto) 0.85 H (0.11-0.59) K/uL Eos # (Auto) 0.11 (0.00-0.50) K/uL Baso # (Auto) 0.05 (0.00-0.20) K/uL Immature Gran # (Auto) 0.23 H (0.01-0.20) K/uL Polychromasia 1+ PT 11.6 (9.0-12.0) Seconds INR 1.1 (0.9-1.1) APTT 20 L (21-31) Seconds PTT Ratio 0.7 Sodium 134 L (136-145) mmol/L Potassium 4.6 (3.5-5.1) mmol/L Chloride 101 (98-107) mmol/L Carbon Dioxide 20 L (21-32) mmol/L Anion Gap 13 H (3-11) BUN 78 H (6-23) mg/dl Creatinine 1.62 H (0.6-1.2) mg/dl Est Cr Clr Drug Dosing 33.9 ml/min eGFR 33.34 BUN/Creatinine Ratio 48.1 H (10-20) Glucose 151 H (70-99(Fasting)) mg/dl Calcium 9.0 (8.6-10.3) mg/dl Total Bilirubin 0.6 (0.2-1.0) mg/dl AST 39 (13-39) U/L ALT 47 (7-52) U/L Alkaline Phosphatase 47 (34-104) U/L Total Creatine Kinase 235 H (26-192) U/L Total Protein 5.6 L (6.0-8.3) gm/dl Albumin 3.4 (3.4-5.0) gm/dl Globulin 2.2 L (2.5-4.0) gm/dl Albumin/Globulin Ratio 1.5 (0.9-2) POC Stool Occult Blood (Negative) Blood Type Blood Type Recheck Antibody Screen Crossmatch
[2024-10-13] MEDS: SERTRALINE HCL 50 MG TABLET PO SCH (09:24)
--- OUTSIDE RECORDS SUMMARY | 2024-10-13 10:13 | External Medical Summary | Continuity of Care Document ---
Author Name Unknown Organization [facility] [id number] Address [address] [place] [phone] Care Team Providers Care Associate Professor Of Philosophy Name Role Phone [facility] geovany [phone] [id number]): 10[facility]05[facility]24 - 10/05/24 [facility] 0 [facility] [address] [facility] [address] [place] [address] Encounter Diagnosis Proximal humeral fracture(Discharge Diagnosis) - 10/05/24 Discharge Disposition: Home or Self Care Attending Physician: MD Lima Paul S Allergies, Adverse Reactions, Alerts Substance Criticality Severity Reaction Reaction Severity Status codeine Itching Active Assessment and Plan Extracted from: Title:Orthopaedics Office Visit Note Author:Alberto jones MD, Jas Nguyen Date:10/05/24 1.Proximal humeral fractur e Findings are discussed. Recommend nonoperative management. Calcium and vitamin D supplementation. Sling and swath full-time. Do not rotate her left shoulder. She may do active movement of hand wrist and elbow. Ice and ggzb-pyg-zoxhmfn analgesics. Follow-up with Lauren in 7 to 10 days for recheck. Grashey AP and transscapular lateral. If alignment acceptable thencontinue active movement of hand wrist and elbow. Follow-up with ks1 month from now with repeat x- rays. If displacement occurs there is a small chance for needing surgery. Immunizations Given and Recorded Vaccine Date Status Refusal Reason SARS COVID Vaccine Unspecified 10/17/23 Recorded influenza virus vaccine, inactivated 09/16/23 James rded influenza virus vaccine, inactivated 1 08/26/17 Re corded influenza virus vaccine, inactivated 2 08/26/16 Re corded influenza virus vaccine, inactivated 3 08/21/15 Re corded influenza virus vaccine, inactivated 4 08/19/14 Re corded influenza virus vaccine, inactivated 5 08/17/13 Re corded influenza virus vaccine, inactivated 6 11/11/11 Re corded influenza virus vaccine, inactivated 7 01/07/11 Re corded SARS-CoV-2 (COVID-19) mRNA BNT-162b2 vax 8 03/30/22 Recorded SARS-CoV-2 (COVID-19) mRNA BNT-162b2 vax 9 03/03/21 Recorded SARS-CoV-2 (COVID-19) mRNA BNT-162b2 vax 10 02/10/21 Recorded zoster vaccine, inactivated 11 10/08/21 Recorded SARS-CoV-2 (COVID-19) mRNA-1273 vaccine 12 09/23/21 Recorded pneumococcal 23-valent vaccine 13 03/09/18 Recorde d pneumococcal 13-valent vaccine 14 08/26/16 Recorde d zoster vaccine live 15 04/28/15 Recorded tetanus/diphtheria/pertuss, acel (Tdap) 16 04/25/09 Recorded 1Result Comment: 2018-10-20: Historical information-source unspecified 2Result Comment: 2018-10-20: Historical information-source unspecified 3Result Comment: 2018-10-20: Historical information-source unspecified 4Result Comment: 2018-10-20: Historical information-source unspecified 5Result Comment: 2018-10-20: Historical information-source unspecified 6Result Comment: 2018-10-20: Historical information-source unspecified 7Result Comment: 2018-10-20: Historical information-source unspecified 8Result Comment: 2022-05-24: Historical information-source unspecified 9Result Comment: 2022-05-24: Historical information-source unspecified 10Result Comment: 2022-05-24: Historical information-source unspecified 11Result Comment: 2022-05-24: Historical information-source unspecified 12Result Comment: 2022-05-24: Historical information-source unspecified 13Result Comment: 2018-10-20: Historical information-source unspecified 14Result Comment: 2018-10-20: Historical information-source unspecified 15Result Comment: 2018-10-20: Historical information-source unspecified 16Result Comment: 2018-10-20: Historical information-source unspecified Medications calcium-vitamin D extended release Start: 07/24/18 10:04:00 AM EDT, 1 tab, PO, Daily Start Date: 07/24/18 Status: Ordered Co Q-10 Start: 07/24/18 10:05:00 AM EDT, 1 tab, PO, Daily Start Date: 07/24/18 Status: Ordered Crestor 40 mg oral tablet Start: 02/27/24 10:30:00 AM EDT, 1 tab, PO, Daily, Disp# 90 tab, Refills: 3, Pharmacy: [facility] Start Date: 02/27/24 Status: Ordered dicyclomine 10 mg oral capsule Start: 11/08/23 10:47:00 AM EST, 1 cap, PO, bid Start Date: 11/08/23 Status: Ordered EPA Fish Oil Start: 07/24/18 10:04:00 AM EDT, 1 tab, PO, Daily Start Date: 07/24/18 Status: Ordered fluocinonide 0.05% topical gel Start: 08/16/24 10:23:00 AM EDT, 1 appl, topical, bid, Disp# 30 g, Refills: 3, to chest when flared,Pharmacy: [facility] Start Date: 08/16/24 Status: Ordered fluocinonide 0.05% topical solution Start: 08/09/22 3:15:00 PM EDT, 1 appl, topical, bid, Disp# 60 mL, Refills: 3, to scalp when flared., Pharmacy: [facility] Start Date: 08/09/22 Status: Ordered lisinopril 20 mg oral tablet Start: 11/08/23 11:13:00 AM EST, 1 tab, PO, Daily, Disp# 90 tab, Refills: 3, Pharmacy: [facility] Start Date: 11/08/23 Status: Ordered MetFORMIN (Eqv-Glucophage XR) 500 mg oral tablet, extended release Start: 05/07/24 8:40:00 AM EDT, 2 tab, PO, Daily, Disp# 180 tab, Refills: 3, with evening meal, Pharmacy: [facility] Start Date: 05/07/24 Stop Date: 05/02/25 Status: Ordered multivitamin Start: 07/26/19 8:48:00 AM EDT, 1 tab, PO, Daily Start Date: 07/26/19 Status: Ordered Neuriva Brain performance Plus Start: 08/12/23 1:54:00 PM EDT, 1 cap, PO, Daily Start Date: 08/12/23 Status: Ordered Plaquenil Sulfate 200 mg oral tablet Start: 07/24/18 10:04:00 AM EDT, 1 tab, PO, Daily Start Date: 07/24/18 Status: Ordered Wellbutrin XL 300 mg/24 hours oral tablet, extended release Start: 02/27/24 10:30:00 AM EDT, 1 tab, PO, q24h, Disp# 90 tab, Refills: 3, Pharmacy: [facility] Start Date: 02/27/24 Status: Ordered Zoloft 25 mg oral tablet Start: 09/05/24 11:33:00 AM EDT, 1 tab, PO, Daily, Disp# 14 tab, take for 2 weeks, then switch to 50mg, Pharmacy: [facility] Start Date: 09/05/24 Status: Ordered Zoloft 50 mg oral tablet Start: 09/05/24 11:33:00 AM EDT, 1 tab, PO, Daily, Disp# 30 tab, Refills: 3, Pharmacy: [facility] Start Date: 09/05/24 Status: Ordered Mental Status 10/05/24 Barriers to Learning one year None evide nt Mandatory Health Literacy Documentation Yes Health Literacy Communication Barriers N ever Primary Language Congolese Problem List Condition Confirmation Course Effective Dates Status Health St atus Informant Allergic cough Confirmed Active Chronic diarrhea Confirmed Active Depression Confirmed Active Former smoker Confirmed Active Hypertension Confirmed Active Lupus 1 Confirmed Active Hepatic steatosis Confirmed Active DM2 (diabetes mellitus, type 2) Confirmed Active 1skin Diagnosis Diagnosis Type Effective Dates Health Status Cl inical Service Informant Proximal humeral fracture Discharge Diagnosis 10/05/24 Non-Specified Procedures Procedure Date Related Diagnosis Body Site Status Excisional biopsy of breast 1 08/02/23 Completed Mammography 2 02/16/23 Completed Mammogram 3 01/24/23 Completed Nasal 4 07/22/22 Completed Ultrasound, breast, unilater al, real time with image documentation, including axilla when performed; limited 01/30/21 Completed Screening mammography, bilat eral (2-view study of each breast), including computer-aided detection (CAD) when performed 01/19/21 Completed Screening mammography, bilat eral (2-view study of each breast), including computer-aided detection (CAD) when performed 01/16/20 Completed Colonoscopy 2013 Completed Appendectomy Completed Surgery 5 Completed Surgery 6 Completed Tonsillectomy Com[facility] [address] [place] [address], [address] [place], [address] Mammography Report Patient: Andi GAMING Date: 02/16/23 MR#: [id number]: [address] Acct ID:[id number]: Date: 1950[facility] Zip: [place] [address] Age: 72Location: MAMMO Sex: FRoom/Bed: Att Phy: Darshana Moy M.D.Diagnosis: LEFT MASS WITH CALCS *SPECIMEN RADIOGRAPHY* Viki Phy: Darshana Moy M.D.Service Date: 02/16/23 Fam Phy: Darshana Moy M.D.Interpreting Phy: Leann Jimenez MD Admit Phy: Ordering Phy: Darshana Moy M.D. DICTATED BY: Leann Jimenez MD cc: Darshana Moy M.D.~ ULTRASOUND GUIDED BIOPSY LEFT BREAST: 02/16/2023 CLINICAL HISTORY: Hypoechoic 8 mm mass with associated calcifications in the left 2:00 breast. COMPARISON: Comparison is made to exams dated: 02/08/2023 mammogram, 02/08/2023 ultrasound, 01/21/2022mammogram, 01/24/2023 mammogram, 08/04/2021 mammogram, and 08/04/2021 ultrasound - [facility]. PATIENT CONSENT: The procedure and risks were discussed with the patient and informed written consent was obtained. A timeout was performed immediately prior to the procedure. PROCEDURE DESCRIPTION: The skin was cleaned with Betadine and draped with sterile towels. The skin was anesthetized with 1% lidocaine and the deeper tissues were anesthetized with 1% lidocaine with epinephrine. A small skin incision was made. With ultrasound guidance, the hypoechoic 8 mm mass with associated calcifications in the left 2:00 breast, 6 cm from the nipple, was sampled 5 times with a 14-gauge Achieve biopsy device. Immediatelythereafter, with ultrasound guidance, a ribbon shaped metallic localizer clip was placed at the biopsy site. A specimen radiograph was performed of the samples which shows faint calcifications to be located within at least one of the samples. Direct pressure was applied to the site immediately postprocedure until hemostasis was achieved. Postprocedure unilateral mammograms were performed to confirm clip placement; see separate dictation for details. Steri-Strips were placed over the site and covered with an Opsite patch. The patient tolerated the procedure without complication. She was givenwound care instructions. The specimens were sent to pathology for analysis. IMPRESSION: ULTRASOUND GUIDED BIOPSY Ultrasound-guided core needle biopsy of the hypoechoic 8 mm mass with associated calcifications in the left 2:00 breast, with clip placement. The patient will receive pathology results from her referring provider. Leann Jimenez M.D. ah/:02/16/2023 13:28:42 Attending Technologist: RT Samantha(Lori)(M), [facility] Gospel Singer: Leann Jimenez MD, [facility] Signed By:Leann Jimenez MD02/18/23 1133 Created: 02/16/23 1300 Transcribed: 02/16/23 1328Transcriptionist: [email or web address] The status of this report is Signed. Draft = Not yet reviewed or approved by Medical Physician. Signed = Reviewed and approved by Medical Physician. [address] [place] [address] [facility], [address] [place] [address], [address] [place], [address] Mammography Report Patient: Andi GAMING Date: 01/24/23 MR#: [id number]: [address] Acct ID:[id number]: Date: [birth year][facility] Zip: [place] [address] Age: 72Location: MAMMO Sex: FRoom/Bed: Att Phy: Kassandra Lucia MDDiagnosis: ASYMPTOMATIC Viki Phy: Darshana Moy M.D.Service Date: 01/24/23 Fam Phy: Interpreting Phy: Shauna Hameed MD Admit Phy: Ordering Phy: Kassandra Lucia MD DICTATED BY: Shauna Hameed MD cc: Kassandra Lucia MD; Darshana Moy M.D.~ BILATERAL DIGITAL SCREENING MAMMOGRAM TOMOSYNTHESIS WITH SYNTHETIC 2D WITH CAD: 01/24/2023 CLINICAL HISTORY: Routine screening. Patient has no complaints. TECHNIQUE: Bilateral CC and MLO tomosynthesis images including synthesized 2D images (Intelligent 2D) were obtained. Current study was also evaluated with a Computer Aided Detection (CAD) system. COMPARISON: Comparison is made to exams dated: 01/21/2022 mammogram, 08/04/2021 mammogram, 01/19/2021 mammogram, 01/16/2020 mammogram, 01/11/2018 mammogram, and 01/06/2017 mammogram - [facility]. BREAST COMPOSITION: There are scattered areas of fibroglandular density. FINDINGS: There is an 8 mm focal asymmetry and associated grouped calcification in the upper outer middle one third of the left breast, for which additional spot magnification, spot compression tomosynthesis views and possible ultrasound are recommended for further characterization. Stable oval circumscribed 7 mm mass in the anterior right breast. No other suspicious mass, architectural distortion or cluster of microcalcifications is seen in either breast. IMPRESSION: ACR BI-RADS CATEGORY 0: INCOMPLETE EVALUATION: NEED ADDITIONAL IMAGING EVALUATION The 8 mm focal asymmetry and associated grouped calcification in the left upper outer breast need additional imaging evaluation. The patient will be called to schedule an appointment. Some breast cancers are not detected with mammography. A negative mammographic report should not delay biopsy if a clinically suggestive mass is present. Shauna Hameed M.D. ay/:01/24/2023 12:28:05 4Closed reduction of Nasal Fracture Bilateral. 5knee 6ankle Vital Signs Most recent to oldest [Reference Range]: 1 Height 162.5 cm (10/05/24 11:50 AM) Patient Weight 85.4 kg (10/05/24 11:50 AM) Body Mass Index 32.34 kg/m2 (10/05/24 11:50 AM) Social History Social History Type Response Tobacco Former smoker, Smoke less tobacco use: Former smokeless tobacco user, quit between 31 days and 1 year ago. 1 Smoking Status Former Smoker, quit > 1 yr Sex Female Sex Representation Female (finding) 1Smoked on an off since age 21, stopped when . Ortho Outpt Note * MD Clarence, Jas Nguyen: PERFORM Event Display: Ortho Outpt Note Authored Date: [id number] Primary Care Provider Kika Flores DO, Mariana Annette Chief Complaint ER follow up right humerus fracture History of Present Illness Katie is a 74-year-old female. Here today with her friend. She fell Tuesday after trippinginjuring her right shoulder. She has no prior history of right shoulder injuries. She is right-hand dominant. Because of persistent pain she went to [facility] the following day which was yesterday. She was diagnosed with a right shoulder fracture and referred for further treatment. Pain in the right shoulder. Review of Systems Reviewed and noted. She has high blood pressure and diabetes. She had a DEXA scan done in June 2022 which showed osteopenia. Physical Exam Vitals & Measurements HT:162.5cm WT:85.400kg(Dosing) WT:85.4kg BMI:32.34 There is bruising of the right shoulder and upper arm area. Tenderness is localized to the right proximal humerus. She does not have any tenderness of the scapulaclavicleor lower arm. She can activate her deltoid and has intact sensation over the lateral arm. She can actively flex and extend her elbow and has intactaxillary musculocutaneous median radial and ulnar motor and sensory functions. There is no swelling distally. Radial pulse is1+. She is in a sling. Diagnostic Results Radiographs of the right humerus 2 views along with 2 views of the shoulder done at [facility] are reviewed by me and show a minimally displacedfracture of the proximal humerus. There appears to be a impaction of the head with a mild displacedgreater tuberosity fragment andcomminution which extends into the metaphysis area. There is no dislocation. The report is noted Assessment/Plan 1.Proximal humeral fracture Findings are discussed. Recommend nonoperative management. Calcium and vitamin D supplementation. Sling and swath full-time. Do not rotate her left shoulder. She may do active movement of hand wrist and elbow. Ice and stnm-izq-jqnlfdi analgesics. Follow-up with Lauren in 7 to 10 days for recheck. Grashey AP and transscapular lateral. If alignment acceptable thencontinue active movement of hand wrist and elbow. Follow-up with me1 month from now with repeat x-rays. If displacement occurs there is a small chance for needing surgery. Problem List/Past Medical History Ongoing Allergic cough Chronic diarrhea Depression DM2 (diabetes mellitus, type 2) Former smoker Hepatic steatosis Hypertension Lupus Resolved Tobacco user Procedure/Surgical History Excisional biopsy of breast| Service Date: 08/02/2023Mammography| Service Date: 02/16/2023Mammogram| Service Date: 01/24/2023Nasal| Service Date: 07/22/2022Ultrasound, breast, unilateral, real time with image documentation, including axilla when performed; limited| Service Date: 01/30/2021creening mammography, bilateral (2-view study of each breast), including computer-aided detection (CAD) when performed| Service Date: 01/19/2021creening mammography, bilateral (2-view study of each breast), including computer-aided detection (CAD) when performed| Service Date: 01/16/2020Colonoscopy| Service Date: 2013SurgerySurgeryAppendectomyTonsillectomy Medications buPROPion(Wellbutrin XL 300 mg/24 hours oral tablet, extended release), 300 mg= 1 tab, PO, q24h, 3 refills calcium-vitamin D(calcium-vitamin D extended release), 1 tab, PO, Daily dicyclomine(dicyclomine 10 mg oral capsule), 10 mg= 1 cap, PO, bid fluocinonide topical(fluocinonide 0.05% topical gel), 1 appl, topical, bid, 3 refills fluocinonide topical(fluocinonide 0.05% topical solution), 1 appl, topical, bid, 3 refills hydroxychloroquine(Plaquenil Sulfate 200 mg oral tablet), 200 mg= 1 tab, PO, Daily lisinopril(lisinopril 20 mg oral tablet), 20 mg= 1 tab, PO, Daily, 3 refills metFORMIN(MetFORMIN (Eqv-Glucophage XR) 500 mg oral tablet, extended release), 1000 mg= 2 tab, PO, Daily, 3 refills multivitamin, 1 tab, PO, Daily multivitamin(Neuriva Brain performance Plus), 1 cap, PO, Daily omega-3 polyunsaturated fatty acids(EPA Fish Oil), 1 tab, PO, Daily rosuvastatin(Crestor 40 mg oral tablet), 40 mg= 1 tab, PO, Daily, 3 refills sertraline(Zoloft 25 mg oral tablet), 25 mg= 1 tab, PO, Daily sertraline(Zoloft 50 mg oral tablet), 50 mg= 1 tab, PO, Daily, 3 refills ubiquinone(Co Q-10), 1 tab, PO, Daily Allergies codeineItching Social History Smoking Status Former Smoker, quit > 1 yr Alcohol - Low Risk Exercise - Does not exercise Nutrition/Health - Medium Risk Tobacco - Medium Risk Use:Former smoker Smokeless tobacco use:Former smokeless tobacco user, quit between 31 days and 1 year ago - Comments: Smoked on an off since age 21, stopped when . Family History Breast cancer: Mother. Health Status Family Member(s) Immunizations Vaccine Date Status SARS COVID Vaccine Unspecified 10/17/2023 Recorded influenza virus vaccine, inactivated 09/16/2023 Recorded SARS-CoV-2 (COVID-19) mRNA BNT-162b2 vax 03/30/2022 Recorded Comments : 2022-05-24: Historical information-source unspecified zoster vaccine, inactivated 10/08/2021 Recorded Comments : 2022-05-24: Historical information-source unspecified SARS-CoV-2 (COVID-19) mRNA-1273 vaccine 09/23/2021 Recorded Comments : 2022-05-24: Historical information-source unspecified SARS-CoV-2 (COVID-19) mRNA BNT-162b2 vax 03/03/2021 Recorded Comments : 2022-05-24: Historical information-source unspecified SARS-CoV-2 (COVID-19) mRNA BNT-162b2 vax 02/10/2021 Recorded Comments : 2022-05-24: Historical information-source unspecified pneumococcal 23-valent vaccine 03/09/2018 Recorded Comments : 2018-10-20: Historical information-source unspecified influenza virus vaccine, inactivated 08/26/2017 Recorded Comments : 2018-10-20: Historical information-source unspecified pneumococcal 13-valent vaccine 08/26/2016 Recorded Comments : 2018-10-20: Historical information-source unspecified influenza virus vaccine, inactivated 08/26/2016 Recorded Comments : 2018-10-20: Historical information-source unspecified influenza virus vaccine, inactivated 08/21/2015 Recorded Comments : 2018-10-20: Historical information-source unspecified zoster vaccine live 04/28/2015 Recorded Comments : 2018-10-20: Historical information-source unspecified influenza virus vaccine, inactivated 08/19/2014 Recorded Comments : 2018-10-20: Historical information-source unspecified influenza virus vaccine, inactivated 08/17/2013 Recorded Comments : 2018-10-20: Historical information-source unspecified influenza virus vaccine, inactivated 11/11/2011 Recorded Comments : 2018-10-20: Historical information-source unspecified influenza virus vaccine, inactivated 01/07/2011 Recorded Comments : 2018-10-20: Historical information-source unspecified tetanus/diphtheria/pertuss, acel (Tdap) 04/25/2009 Recorded Comments : 2018-10-20: Historical information-source unspecified Recommendations Health Maintenance Pending(in the next year) OverDue Adult Influenza Vaccine due05/27/24and every 1year Due Adult Social Determinants of Health Screening due10/05/24Unknown Frequency Adult Tdap/Td Vaccine due10/05/24Unknown Frequency Falls Plan of Care due10/05/24Unknown Frequency Medicare Annual Wellness Visit due10/05/24and every 1year Shingles Vaccine due10/05/24One-time only Due In Future Diabetes Management A1c not due until02/07/25and every 366day Diabetic Eye Exam not due until07/03/25and every 366day Satisfied(in the past 1 year) Satisfied Body Mass Index on10/05/24.Satisfied by SIMONE Dias Cassidy Breast Cancer Screening on01/30/24.Satisfied by MONICA Felder Lori Diabetes Management A1c on02/07/24.Satisfied by Contributor_system, [id number] Diabetes Nephropathy Management on02/07/24.Satisfied by Contributor_system, [id number] Lipid Screening on02/07/24.Satisfied by Contributor_system, [email or web address] Electronic Signature on File Electronically Reviewed/Signed by: Jas Lima MD Author Signature Dt/Tm:10/05/2024 03:43 PM Division of Sports Medicine PSS Patient Care team information Care Team Personnel Name: Kika Flores DO, Mariana Annette Position: Physician - Family Med Member Role: Primary Care Provider Address: [address] [place] [address] [address] [place] [address] [place] Name: MD Sheri, Selena Tran Position: Physician - Surgery Oncology Member Role: Lifetime Relationship Address: [address] [place] [address] [address] [place] [address]"
[2024-10-13 10:14] LABS: Hematocrit (blood only) 27.3 % (37.0-47.0); Hemoglobin 9.3 g/dl (12.0-16.0); Mean Corpuscular Hemoglobin 29.8 pg (25.0-34.0); Mean Corpuscular Hgb Conc 34.1 g/dL (32.0-36.0); Mean Corpuscular Volume 87.5 fL (80.0-100.0); Mean Platelet Volume 9.9 fL (9.4-12.4); Platelet Count 283 K/uL (130-400); RDW Coefficient of Variation 14.5 % (11.5-14.5); RDW Standard Deviation 45.7 fL (36.4-46.3); Red Blood Count 3.12 M/uL (4.20-5.40); White Blood Count 13.01 K/ul (4.8-10.8)
--- NOTE | 2024-10-13 11:16 | Hospitalist Progress Note ---
Date of Service October 13, 2024 Assessment & Plan (1) GI bleed: (2) Fracture of head of humerus: (3) Fall: Plan GI bleed/acute blood loss anemia due to GI bleed - Per patient several dark BMs, feeling feint, weak, and dizzy Stool guaiac positive -Hemoglobin dropped to 6.6. Patient received 2 units of blood transfusion. Posttransfusion hemoglobin is 9.3. - Maintain 2 large bore IVs, Protonix drip continued - GI consulted. Plan on EGD tomorrow. N.p.o. - CBC Q6H, CMP QAM Humerus head/neck fracture/Fall - Met with orthopedics on Tuesday - Next appointment with ortho 10/15 - CK mildly elevated at 235 - Consider PT/OT if weakness not improving Cutaneous lupus Continue hydroxychloroquine Admission and Anticipated Discharge Date Admission Date: October 12, 2024 Subjective Patient was seen and examined at 9:45 AM. She says that she has not had any bowel movement since she got admitted to the hospital. She is not feeling as weak anymore. She received 2 units of blood transfusion. She says that she was seen by GI and the plan is for EGD tomorrow Review of Systems Review of Systems: All systems reviewed & are unremarkable except as noted in Subjective Physical Exam Physical Exam: General: Awake, conversant Heart: S1, S2/regular rate and rhythm, no murmur rubs or gallops Lungs: Clear to auscultation bilaterally. Normal effort Abdomen: Soft/nontender/nondistended. No hepatosplenomegaly Extremities: No clubbing/cyanosis. No edema Behavior: Appropriate, cooperative Results & Data Results & Data Vital Signs (Past 12 Hours) Vital Signs Temp Pulse Pulse Resp BP BP Pulse Ox 10/13/24 07:55 36.5 C 95 H 16 116/78 97 10/13/24 07:00 88 10/13/24 06:55 36.7 C 93 H 18 124/77 99 10/13/24 06:55 36.5 C 94 H 20 122/78 100 10/13/24 06:25 36.5 C 94 H 18 130/83 95 10/13/24 06:10 36.5 C 89 18 125/72 98 10/13/24 05:51 36.5 C 84 18 121/71 99 10/13/24 05:31 36.6 C 98 H 18 129/81 96 10/13/24 04:38 36.8 C 95 H 16 132/80 100 10/13/24 03:38 36.7 C 93 H 18 128/81 99 10/13/24 03:08 36.9 C 96 H 18 110/74 97 10/13/24 03:07 36.9 C 96 H 18 110/74 97 10/13/24 02:53 36.5 C 100 H 16 91/57 L 97 10/13/24 02:31 36.6 C 93 H 18 94/67 L 98 10/13/24 01:30 10/13/24 01:17 36.8 C 95 H 18 105/62 98 10/13/24 01:13 97 H 10/13/24 00:13 36.8 C 101 H 19 102/65 100 10/13/24 00:00 99 H 16 100 10/12/24 23:30 98 H 15 100 O2 Del Method 10/13/24 07:55 10/13/24 07:00 10/13/24 06:55 10/13/24 06:55 10/13/24 06:25 10/13/24 06:10 10/13/24 05:51 10/13/24 05:31 10/13/24 04:38 10/13/24 03:38 10/13/24 03:08 10/13/24 03:07 10/13/24 02:53 10/13/24 02:31 10/13/24 01:30 Room Air 10/13/24 01:17 Room Air 10/13/24 01:13 10/13/24 00:13 Room Air 10/13/24 00:00 10/12/24 23:30 Laboratory Results Abnormal lab results 10/12/24 10/12/24 10/12/24 Range/Units 19:07 21:12 21:31 WBC 11.88 H (4.8-10.8) K/ul RBC 2.36 L (4.20-5.40) M/uL Hgb 7.3 L (12.0-16.0) g/dl Hct 22.2 L (37.0-47.0) % RDW Std Deviation (36.4-46.3) fL Neut # (Auto) 8.97 H (1.40-6.50) K/uL Garza # (Auto) 0.85 H (0.11-0.59) K/uL Immature Gran # (Auto) 0.23 H (0.01-0.20) K/uL APTT 20 L (21-31) Seconds Sodium 134 L (136-145) mmol/L Carbon Dioxide 20 L (21-32) mmol/L Anion Gap 13 H (3-11) BUN 78 H (6-23) mg/dl Creatinine 1.62 H (0.6-1.2) mg/dl BUN/Creatinine Ratio 48.1 H (10-20) Glucose 151 H (70-99(Fasting)) mg/dl Total Creatine Kinase 235 H (26-192) U/L Total Protein 5.6 L (6.0-8.3) gm/dl Albumin (3.4-5.0) gm/dl Globulin 2.2 L (2.5-4.0) gm/dl POC Stool Occult Blood Positive A (Negative) Crossmatch See Detail 10/13/24 10/13/24 Range/Units 01:18 09:32 WBC 12.23 H 13.01 H (4.8-10.8) K/ul RBC 2.11 L 3.12 L (4.20-5.40) M/uL Hgb 6.6 L* 9.3 L (12.0-16.0) g/dl Hct 19.7 L* 27.3 L (37.0-47.0) % RDW Std Deviation 46.5 H (36.4-46.3) fL Neut # (Auto) (1.40-6.50) K/uL Garza # (Auto) (0.11-0.59) K/uL Immature Gran # (Auto) (0.01-0.20) K/uL APTT (21-31) Seconds Sodium 135 L (136-145) mmol/L Carbon Dioxide (21-32) mmol/L Anion Gap (3-11) BUN 74 H (6-23) mg/dl Creatinine 1.59 H (0.6-1.2) mg/dl BUN/Creatinine Ratio 46.5 H (10-20) Glucose 131 H (70-99(Fasting)) mg/dl Total Creatine Kinase (26-192) U/L Total Protein 5.3 L (6.0-8.3) gm/dl Albumin 3.2 L (3.4-5.0) gm/dl Globulin 2.1 L (2.5-4.0) gm/dl POC Stool Occult Blood (Negative) Crossmatch PG Care Time/CCT Total # of Minutes Spent Total Time Spent with Patient: Total time spent is greater than 50% in coordination of care (as documented) at patient's floor/unit and/or counseling patient: Coding Level of Care Code 37498 SUB INP/OBS CARE 2/35MIN Diagnoses GI bleed K92.2 Fracture of head of humerus S42.291A Encounter type: initial encounter Fracture type: closed Laterality: right Fall W19.XXXA Encounter type: initial encounter (2) Fracture of head of humerus Encounter type: initial encounter Fracture type: closed Laterality: right Qualified Code(s): S42.291A - Other displaced fracture of upper end of right humerus, initial encounter for closed fracture (3) Fall Encounter type: initial encounter Qualified Code(s): W19.XXXA - Unspecified fall, initial encounter
[2024-10-13 14:30] LABS: Hematocrit (blood only) 27.3 % (37.0-47.0); Hemoglobin 9.2 g/dl (12.0-16.0); Mean Corpuscular Hemoglobin 30.1 pg (25.0-34.0); Mean Corpuscular Hgb Conc 33.7 g/dL (32.0-36.0); Mean Corpuscular Volume 89.2 fL (80.0-100.0); Mean Platelet Volume 9.5 fL (9.4-12.4); Platelet Count 284 K/uL (130-400); RDW Standard Deviation 48.7 fL (36.4-46.3); Red Blood Count 3.06 M/uL (4.20-5.40)
[2024-10-13 19:58] LABS: Hemoglobin 9.1 g/dl (12.0-16.0); Mean Corpuscular Hgb Conc 33.7 g/dL (32.0-36.0); Mean Corpuscular Volume 89.1 fL (80.0-100.0); Mean Platelet Volume 9.4 fL (9.4-12.4); Platelet Count 279 K/uL (130-400); RDW Coefficient of Variation 15.2 % (11.5-14.5); RDW Standard Deviation 49.2 fL (36.4-46.3); Red Blood Count 3.03 M/uL (4.20-5.40); White Blood Count 10.31 K/ul (4.8-10.8)
[2024-10-14 01:03] LABS: Hematocrit (blood only) 26.8 % (37.0-47.0); Hemoglobin 9.1 g/dl (12.0-16.0); Mean Corpuscular Hemoglobin 29.9 pg (25.0-34.0); Mean Corpuscular Volume 88.2 fL (80.0-100.0); Mean Platelet Volume 9.4 fL (9.4-12.4); Nucleated RBC # (auto) 0.02 K/uL (0.00-0.12); Nucleated RBC % (auto) 0.2 %; Platelet Count 304 K/uL (130-400); Red Blood Count 3.04 M/uL (4.20-5.40)
--- NOTE | 2024-10-14 07:40 | History & Physical Report ---
Date of Service October 14, 2024 Assessment & Plan (1) GI bleed: Plan: Admitted with melena. seems to have stopped bleeding. Procedure and risks for EGD discussed. She agrees Admission and Anticipated Discharge Date Admission Date: October 13, 2024 History of Present Illness Chief Complaint: melena Primary Care Provider: Key Flores, DO No further bleeding. No bowel movements Allergies Allergy/AdvReac Type Severity Reaction Status Date / Time codeine Allergy Mild itching Verified 09/27/24 09:16 Home Medications Medication Instructions Recorded Confirmed Type bacitracin 500 unit/gram topical 1 applic topical BID PRN Rash 07/20/22 10/12/24 History ointment hydroxychloroquine 200 mg tablet 200 mg PO QAM 09/27/24 10/12/24 History (Plaquenil) lisinopril 20 mg tablet 20 mg PO DAILY 09/27/24 10/12/24 History metformin 500 mg tablet 1,000 mg PO DAILY 09/27/24 10/12/24 History sertraline 25 mg tablet (Zoloft) 25 mg PO DAILY 09/27/24 10/12/24 History Past Med/Surg History Problem List Upper gastrointestinal hemorrhage (Acute) GI bleed Fracture of head of humerus (Acute) Fall (Acute) Dupuytrens contracture Osteoarthritis Acquired deviated nasal septum Medical History Anxiety and depression Diabetes Sleep apnea no compliant with cpap Cutaneous lupus erythematosus Follows PA at [facility] - taking Plaquenil Hypertension pt denies Surgical History History of colonoscopy Hx of bilateral cataract extraction History of surgery on wrist right History of knee surgery left History of ankle surgery right -broken History of appendectomy History of tonsillectomy Family History Mother Hypertension Cancer Father Allergies Other No family history of adverse response to anesthesia No family history of bleeding disorder Social History Smoking Status: Former smoker Tobacco Type: Cigarettes Cigarettes Per Day: 1/2 pk/ day; Smoking End Date: approximately 3 years ago; Second Hand Exposure: No; Do You Dip or Chew Tobacco: No; Hx Alcohol Use: Yes Alcohol type: hard liquor Hx Substance Use: No Preferred Language: Latvian Communication Ability: Effective Poker In Required: No Beliefs That Will Affect Care: None Current Living Situation: Family Current Living Situation Comment: lives with son Other Information That Helps Us Care for You: No Feels Safe at Home: Yes Safety Concerns: Feels Safe At This Time Assistive Devices: Glasses Physical Exam Physical Exam: She looks well Constitutional: WD/WN, vitals as above Neck: trachea midline, no thyromegaly Respiratory: normal respiratory effort, lungs clear to auscultation Cardiovascular: RRR, no murmur, no edema Gastrointestinal (Abdomen): normal bowel sounds, soft, nontender, no hepatosplenomegaly ASA Classification ASA ASA2 Results & Data Vital Signs (Past 12 Hours) Vital Signs Temp Pulse Pulse Resp BP Pulse Ox O2 Del Method 10/14/24 07:07 104 H 10/14/24 02:55 36.6 C 95 H 18 130/67 96 Room Air 10/13/24 23:03 36.8 C 94 H 18 115/70 98 Room Air 10/13/24 21:48 88 10/13/24 20:00 Room Air
--- NOTE | 2024-10-14 07:55 | Anesthesiology Consultation ---
Date of Service October 14, 2024 History Surgery Operation Date: 10/14/24 08:00 Proposed Procedures p Esophagogastroduodenoscopy - Vikram Foreman Jr, MD Height/Weight Height: 5 ft 5 in Weight: 85.1 kg Allergies Allergy/AdvReac Type Severity Reaction Status Date / Time codeine Allergy Mild itching Verified 09/27/24 09:16 Medications Home Medications Medication Instructions Recorded Confirmed Last Taken bacitracin 500 unit/gram topical 1 applic topical BID PRN Rash 07/20/22 10/12/24 Unknown ointment hydroxychloroquine 200 mg tablet 200 mg PO QAM 09/27/24 10/12/24 Unknown (Plaquenil) lisinopril 20 mg tablet 20 mg PO DAILY 09/27/24 10/12/24 Unknown metformin 500 mg tablet 1,000 mg PO DAILY 09/27/24 10/12/24 Unknown sertraline 25 mg tablet (Zoloft) 25 mg PO DAILY 09/27/24 10/12/24 Unknown Active Medications Generic Name Dose Route Start Last Admin Trade Name Marleen PRN Reason Stop Dose Admin Hydroxychloroquine Sulfate 200 mg 10/13/24 09:00 10/13/24 08:37 Hydroxychloroquine Sulfate 200 Mg Tab PO 11/12/24 08:59 200 mg QAM WILLIAM Administration Pantoprazole Sodium 40 mg/ 100 mls @ 20 mls/hr 10/12/24 21:15 10/14/24 04:16 Dextrose IV 11/11/24 21:14 8 mg/hr Q5H WILLIAM 20 mls/hr Administration 8 MG/HR Sertraline HCl 25 mg 10/13/24 09:00 10/13/24 09:24 Sertraline Hcl 50 Mg Tablet PO 11/12/24 08:59 25 mg DAILY WILLIAM Administration NPO Date Last Intake of Fluids: 10/14/24 Time Last Intake of Fluids: 06:00 Last Intake of Fluids Comment: Ice chips Date Last Intake of Solids: 10/12/24 Time Last Intake of Solids: 16:00 Past Medical History Medical History Anxiety and depression Diabetes Sleep apnea no compliant with cpap Cutaneous lupus erythematosus Follows PA at [facility] - taking Plaquenil Hypertension pt denies Exercise / Class Metabolic Activity II 4-5 Yardwork/Stairs/Walk up hill Past Family History Family History Mother Hypertension Cancer Father Allergies Other No family history of adverse response to anesthesia No family history of bleeding disorder Past Surgical History Surgical History History of colonoscopy Hx of bilateral cataract extraction History of surgery on wrist right History of knee surgery left History of ankle surgery right -broken History of appendectomy History of tonsillectomy Social History Smoking Status: Former smoker tobacco type: cigarettes Smoking cigarettes per day: 1/2 pk/ day Do You Dip or Chew Tobacco: No Smoking End Date: approximately 3 years ago Hx Alcohol Use: Yes Alcohol type: hard liquor alcohol intake frequency: a few times a week Hx Substance Use: No substance use type: does not use Physical Exam Vital Signs Last Vital Signs Temp 36.6 C 10/14/24 02:55 Pulse 104 H 10/14/24 07:07 Resp 18 10/14/24 02:55 BP 130/67 10/14/24 02:55 Pulse Ox 96 10/14/24 02:55 O2 Del Method Room Air 10/14/24 02:55 Testing Laboratory Results 10/14/24 00:44 10/13/24 01:18 PT 11.6 Seconds (9.0-12.0) 10/12/24 19:07 INR 1.1 (0.9-1.1) 10/12/24 19:07 APTT 20 Seconds (21-31) L 10/12/24 19:07 Blood Type A Negative 10/12/24 21:12 Antibody Screen NEGATIVE 10/12/24 21:12 10/14/24 07:48 POC Glucose 117 H
[2024-10-14] MEDS ORDERED: fentaNYL citrate PF 100 MCG/2 ML VIAL IV PRN (07:58)
[2024-10-14] MEDS ORDERED: ONDANSETRON INJ 2 MG/ML 2 ML VIAL IV PRN (07:58)
[2024-10-14] MEDS ORDERED: ATROPINE SULFATE 0.1 MG/ML 10ML SYR IV PRN (07:58)
--- NOTE | 2024-10-14 08:18 | GI REPORT ---
[facility] Patient: Andi GAMING : 1950 Sex at : Female Age: 74 Years Procedure: Upper GI endoscopy Date: 10/14/2024 Attending Physician: Vikram Foreman MD Referring MD: Referred Self; Patricia Mims Md Indications: - Melena Medications: - Monitored Anesthesia Care - Propofol per Anesthesia - See the Anesthesia note for documentation of the administered medications Complications: - No immediate complications. Estimated Blood Loss: - Estimated blood loss: None. Procedure: - ASA Grade Assessment: III - A patient with severe systemic disease. - The egd scope was introduced through the mouth and advanced to the second part of the duodenum. - The upper GI endoscopy was accomplished without difficulty. - The patient tolerated the procedure well. Findings: - The examined esophagus was normal. - Red blood-tinged fluid was found in the gastric antrum. Lavage of the area was performed using a small amount, resulting in clearance with adequate visualization. - Two non-bleeding cratered duodenal ulcers with adherent clot were found in the duodenal bulb and in the first portion of the duodenum. The largest lesion was 6 mm in largest dimension. These were on the posterior wall of the duodenum. There were two discrete ulcers both with non bleeding clots/visible vessels. There was a good amount of surrounding edema making approach difficult. With this it was felt it was best not to try to do anything to clots as approach was not optimal. Impression: - Normal esophagus. - Red blood in the gastric antrum. - Non-bleeding duodenal ulcers with adherent clot. - No specimens collected. Recommendation: - [facility] patient [facility] for ongoing care. Procedure Code(s): - 34299, Esophagogastroduodenoscopy, flexible, transoral; diagnostic, including collection of specimen(s) by brushing or washing, when performed (separate procedure) Diagnosis Code(s): - K92.1, Melena (includes Hematochezia) - K92.2, Gastrointestinal hemorrhage, unspecified - K26.4, Chronic or unspecified duodenal ulcer with hemorrhage CPT(R) - 202 copyright [employer]. All Rights Reserved. The CPT codes, CCI edits and ICD codes generated are intended as suggestions and were generated based on input data. These codes are preliminary and upon radiocommunications technician review may be revised to meet current compliance and payer requirements. The provider is responsible for the final determination of appropriate codes, and modifiers. Dr. Vikram Foreman MD This document has been electronically signed. Note Initiated:10/14/2024 Note Completed:10/14/2024 8:17 AM \\[id number]
--- NOTE | 2024-10-14 09:07 | Anesthesiology Progress Note ---
Date of Service October 14, 2024 Anesthesia Post Procedure Vital Signs Vital Signs: Temp Pulse Pulse Pulse Pulse Resp BP 10/14/24 08:50 81 18 122/72 10/14/24 08:40 80 20 126/72 10/14/24 08:30 85 14 127/86 10/14/24 08:22 36.2 C L 100 H 20 118/61 10/14/24 07:51 36.7 C 100 H 20 133/78 10/14/24 07:07 104 H 10/14/24 02:55 36.6 C 95 H 18 130/67 10/13/24 23:03 36.8 C 94 H 18 115/70 10/13/24 21:48 88 10/13/24 20:00 10/13/24 19:25 36.3 C L 91 H 18 118/78 10/13/24 15:37 36.3 C L 88 20 120/75 10/13/24 14:10 88 10/13/24 11:22 36.5 C 90 20 99/62 L Pulse Ox O2 Del Method O2 Flow Rate 10/14/24 08:50 96 Room Air 10/14/24 08:40 98 Room Air 10/14/24 08:30 100 Oxymask 4 10/14/24 08:22 100 Oxymask 8 10/14/24 07:51 100 Room Air 10/14/24 07:07 10/14/24 02:55 96 Room Air 10/13/24 23:03 98 Room Air 10/13/24 21:48 10/13/24 20:00 Room Air 10/13/24 19:25 95 Room Air 10/13/24 15:37 99 Room Air 10/13/24 14:10 10/13/24 11:22 97 Room Air Pain Intensity Neck: Pain Intensity: 5 Transfer of Care Handoff Completed per policy Notes Mental Status: alert / awake / arousable Patient Amnestic to Procedure: Yes Nausea / Vomiting: adequately controlled Pain: adequately controlled Airway Patency, RR, SpO2: stable & adequate BP & HR: stable & adequate Hydration State: stable & adequate Anesthetic Complications: no major complications apparent
--- NOTE | 2024-10-14 12:05 | Hospitalist Progress Note ---
Date of Service October 14, 2024 Assessment & Plan (1) GI bleed: (2) Fracture of head of humerus: (3) Fall: Plan GI bleed/acute blood loss anemia due to GI bleed from bleeding duodenal ulcers - Per patient several dark BMs, feeling feint, weak, and dizzy Stool guaiac positive -Hemoglobin dropped to 6.6. Patient received 2 units of blood transfusion. Posttransfusion hemoglobin is stable in the nines range - Maintain 2 large bore IVs - GI on board. EGD completed today. EGD showed 2 deep duodenal ulcers that were not actively bleeding at the time of EGD but had clot on them. GI recommended advance to a clear liquid diet. Switch from IV to p.o. Protonix -Advance diet slowly Monitor on hospital for 2 more days Humerus head/neck fracture/Fall - Met with orthopedics on Tuesday - Next appointment with ortho 10/15 - CK mildly elevated at 235 - Consider PT/OT if weakness not improving Cutaneous lupus Continue hydroxychloroquine Admission and Anticipated Discharge Date Admission Date: October 13, 2024 Subjective Patient had her EGD done today. She feels well at this time. She had clear liquid diet. No bowel movement since admission. Denies chest pain, shortness of breath, dizziness, abdominal pain Review of Systems Review of Systems: All systems reviewed & are unremarkable except as noted in Subjective Physical Exam Physical Exam: General: Awake, conversant Heart: S1, S2/regular rate and rhythm, no murmur rubs or gallops Lungs: Clear to auscultation bilaterally. Normal effort Abdomen: Soft/nontender/nondistended. No hepatosplenomegaly Extremities: No clubbing/cyanosis. No edema Behavior: Appropriate, cooperative Results & Data Results & Data Vital Signs (Past 12 Hours) Vital Signs Temp Pulse Pulse Pulse Pulse Resp BP 10/14/24 11:54 36.5 C 68 20 102/57 L 10/14/24 09:55 36.5 C 88 16 121/66 10/14/24 08:50 81 18 122/72 10/14/24 08:40 80 20 126/72 10/14/24 08:30 85 14 127/86 10/14/24 08:22 36.2 C L 100 H 20 118/61 10/14/24 07:51 36.7 C 100 H 20 133/78 11/17/24 07:07 104 H 10/14/24 02:55 36.6 C 95 H 18 130/67 Pulse Ox O2 Del Method O2 Flow Rate 10/14/24 11:54 94 Room Air 10/14/24 09:55 97 Room Air 10/14/24 08:50 96 Room Air 10/14/24 08:40 98 Room Air 10/14/24 08:30 100 Oxymask 4 10/14/24 08:22 100 Oxymask 8 10/14/24 07:51 100 Room Air 10/14/24 07:07 10/14/24 02:55 96 Room Air Laboratory Results Abnormal lab results 10/13/24 10/13/24 10/14/24 Range/Units 14:03 19:32 00:44 WBC 11.70 H (4.8-10.8) K/ul RBC 3.06 L 3.03 L 3.04 L (4.20-5.40) M/uL Hgb 9.2 L 9.1 L 9.1 L (12.0-16.0) g/dl Hct 27.3 L 27.0 L 26.8 L (37.0-47.0) % RDW Std Deviation 48.7 H 49.2 H 48.0 H (36.4-46.3) fL RDW Coeff of Melody 15.0 H 15.2 H 15.0 H (11.5-14.5) % POC Glucose (70-99) mg/dl 10/14/24 10/14/24 Range/Units 07:48 08:29 WBC (4.8-10.8) K/ul RBC (4.20-5.40) M/uL Hgb (12.0-16.0) g/dl Hct (37.0-47.0) % RDW Std Deviation (36.4-46.3) fL RDW Coeff of Melody (11.5-14.5) % POC Glucose 117 H 114 H (70-99) mg/dl PG Care Time/CCT Total # of Minutes Spent Total Time Spent with Patient: Total time spent is greater than 50% in coordination of care (as documented) at patient's floor/unit and/or counseling patient: Coding Level of Care Code 09704 SUB INP/OBS CARE 2/35MIN Diagnoses GI bleed K92.2 Fracture of head of humerus S42.291A Encounter type: initial encounter Fracture type: closed Laterality: right Fall W19.XXXA Encounter type: initial encounter (2) Fracture of head of humerus Encounter type: initial encounter Fracture type: closed Laterality: right Qualified Code(s): S42.291A - Other displaced fracture of upper end of right humerus, initial encounter for closed fracture (3) Fall Encounter type: initial encounter Qualified Code(s): W19.XXXA - Unspecified fall, initial encounter
[2024-10-14 12:36] LABS: Hematocrit (blood only) 22.9 % (37.0-47.0); Hemoglobin 7.6 g/dl (12.0-16.0)
[2024-10-14] MEDS: PANTOprazole 40 MG TAB PO SCH (20:34)
[2024-10-14 20:50] LABS: Hematocrit (blood only) 21.6 % (37.0-47.0); Hemoglobin 7.2 g/dl (12.0-16.0)
[2024-10-14] MEDS ORDERED: SODIUM CHLORIDE 0.9% 50 ML IV PRN (20:57)
[2024-10-14] MEDS ORDERED: SODIUM CHLORIDE 0.9% 100 ML IV PRN (20:57)
[2024-10-15 04:32] LABS: Hematocrit (blood only) 27.1 % (37.0-47.0)
[2024-10-15 11:27] LABS: Hematocrit (blood only) 27.2 % (37.0-47.0); Hemoglobin 8.9 g/dl (12.0-16.0)
--- NOTE | 2024-10-15 13:21 | Hospitalist Progress Note ---
Date of Service October 15, 2024 Assessment & Plan (1) GI bleed: (2) Fracture of head of humerus: (3) Fall: Plan GI bleed/acute blood loss anemia due to GI bleed from bleeding duodenal ulcers - Per patient several dark BMs, feeling feint, weak, and dizzy Stool guaiac positive -Hemoglobin dropped to 6.6. Patient received 2 units of blood transfusion. Posttransfusion hemoglobin was stable in the nines range - Maintain 2 large bore IVs - GI on board. EGD completed 10/14. EGD showed 2 deep duodenal ulcers that were not actively bleeding at the time of EGD but had clot on them. GI recommended advance to a clear liquid diet. Continue p.o. Protonix Hemoglobin dropped and patient received transfusion overnight 10/14 This morning she had another episode of black stool. This is most likely the stool that was sitting in her belly that came out. Will continue to monitor H&H Vital signs stable -Continue clear liquid diet Humerus head/neck fracture/Fall - Met with orthopedics on Tuesday -Ortho appointment 10/15 will need to be rescheduled - CK mildly elevated at 235 - Consider PT/OT if weakness not improving Cutaneous lupus Continue hydroxychloroquine Admission and Anticipated Discharge Date Admission Date: October 13, 2024 Subjective Patient was seen and examined at 11:05 AM. Her hemoglobin had dropped and she received 1 unit of blood overnight. This morning, she had 1 episode of black stool. She complained of feeling dizzy. Her blood pressure was stable at that time, per nurse. A repeat hemoglobin after she had the black stool was stable. Review of Systems Review of Systems: All systems reviewed & are unremarkable except as noted in Subjective Physical Exam Physical Exam: General: Awake, conversant Heart: S1, S2/regular rate and rhythm, no murmur rubs or gallops Lungs: Clear to auscultation bilaterally. Normal effort Abdomen: Soft/nontender/nondistended. No hepatosplenomegaly Extremities: No clubbing/cyanosis. No edema Behavior: Appropriate, cooperative Results & Data Results & Data Vital Signs (Past 12 Hours) Vital Signs Temp Pulse Pulse Resp BP Pulse Ox O2 Del Method 10/15/24 11:47 36.5 C 78 20 125/65 99 Room Air 10/15/24 10:38 36.3 C L 93 H 20 119/81 95 Room Air 10/15/24 07:47 36.4 C L 89 16 152/76 H 97 Room Air 10/15/24 07:00 88 10/15/24 04:04 36.5 C 70 16 143/70 H 95 Room Air Laboratory Results Abnormal lab results 10/12/24 10/14/24 10/15/24 Range/Units 21:12 20:13 04:13 Hgb 7.2 L 9.0 L (12.0-16.0) g/dl Hct 21.6 L 27.1 L (37.0-47.0) % Crossmatch See Detail 10/15/24 Range/Units 11:06 Hgb 8.9 L (12.0-16.0) g/dl Hct 27.2 L (37.0-47.0) % Crossmatch PG Care Time/CCT Total # of Minutes Spent Total Time Spent with Patient: Total time spent is greater than 50% in coordination of care (as documented) at patient's floor/unit and/or counseling patient: Coding Level of Care Code 86723 SUB INP/OBS CARE MIN Diagnoses GI bleed K92.2 Fracture of head of humerus S42.291A Encounter type: initial encounter Fracture type: closed Laterality: right Fall W19.XXXA Encounter type: initial encounter (2) Fracture of head of humerus Encounter type: initial encounter Fracture type: closed Laterality: right Qualified Code(s): S42.291A - Other displaced fracture of upper end of right humerus, initial encounter for closed fracture (3) Fall Encounter type: initial encounter Qualified Code(s): W19.XXXA - Unspecified fall, initial encounter
--- NOTE | 2024-10-15 14:23 | Gastroenterology Progress Note ---
Date of Service October 15, 2024 Assessment & Plan (1) GI bleed: Plan: The red blood adds a confusing point to the picture. If UGI bleed with BRBPR then it would be major bleed and she would continue to pass blood but she doesn't seem to be doing that. She had a colonoscopy in February of this year. Will follow her blood count and decide if we need to intervene and how best to intervene. Access to the ulcers was limited by anatomy and edema but will consider repeat EGD if we need to do that Admission and Anticipated Discharge Date Admission Date: October 13, 2024 Subjective Just had an accident of red blood. Not a large volume though. Had black stool this morning. hemoglobin 8.9 today after getting one unit yesterday after procedure. She says she feels fine and she is smiling Physical Exam Physical Exam: She looks comfortable but pale Results & Data Vital Signs (Past 12 Hours) Vital Signs Temp Pulse Pulse Resp BP Pulse Ox O2 Del Method 10/15/24 11:47 36.5 C 78 20 125/65 99 Room Air 10/15/24 10:38 36.3 C L 93 H 20 119/81 95 Room Air 10/15/24 07:47 36.4 C L 89 16 152/76 H 97 Room Air 10/15/24 07:00 88 10/15/24 04:04 36.5 C 70 16 143/70 H 95 Room Air
--- NOTE | 2024-10-15 16:25 | Electrocardiogram Report ---
Test Reason : Blood Pressure : */* mmHG Vent. Rate : 95 BPM Atrial Rate : 95 BPM P-R Int : 138 ms QRS Dur : 72 ms QT Int : 374 ms P-R-T Axes : 73 44 65 degrees QTcB Int : 469 ms Poor data quality, interpretation may be adversely affected Normal sinus rhythm Normal ECG When compared with ECG of 19-Jul-2022 15:24, Criteria for Septal infarct are no longer Present Confirmed by Sam Luna ([id number]) on 10/15/2024 4:25:15 PM Referred By: REFERRED SELF Confirmed By: Sam Luna
[2024-10-15 19:32] LABS: Hematocrit (blood only) 25.4 % (37.0-47.0); Hemoglobin 8.5 g/dl (12.0-16.0)
[2024-10-16 07:38] LABS: Hematocrit (blood only) 25.5 % (37.0-47.0); Hemoglobin 8.6 g/dl (12.0-16.0)
--- NOTE | 2024-10-16 12:26 | Hospitalist Progress Note ---
Date of Service October 16, 2024 Assessment & Plan (1) GI bleed: (2) Fracture of head of humerus: (3) Fall: Plan GI bleed/acute blood loss anemia due to GI bleed from bleeding duodenal ulcers - Per patient several dark BMs, feeling feint, weak, and dizzy Stool guaiac positive -Hemoglobin dropped to 6.6. Patient received 2 units of blood transfusion. Posttransfusion hemoglobin was stable in the nines range - Maintain 2 large bore IVs - GI on board. EGD completed 10/14. EGD showed 2 deep duodenal ulcers that were not actively bleeding at the time of EGD but had clot on them. Continue p.o. Protonix Hemoglobin dropped and patient received transfusion overnight 10/14. Hemoglobin has stayed stable since She continues to have bloody bowel movements with stable hemoglobin GI was informed. With continuing bloody bowel movements despite stable hemoglobin, likely lower GI bleed. Patient had a colonoscopy in February. GI recommends observing for now. Continue to check H&H Vital signs stable Continue care liquid diet Humerus head/neck fracture/Fall - Met with orthopedics on Tuesday -Ortho appointment 10/15 will need to be rescheduled - CK mildly elevated at 235 - Consider PT/OT if weakness not improving Cutaneous lupus Continue hydroxychloroquine Admission and Anticipated Discharge Date Admission Date: October 13, 2024 Subjective Patient was seen and examined at 10:15 AM. Patient had a dark red bloody bowel movement this morning. She does not have any other complaints. No dizziness, chest pain or shortness of breath. Hemoglobin stayed stable. GI was informed about the bloody bowel movements. Review of Systems Review of Systems: All systems reviewed & are unremarkable except as noted in Subjective Physical Exam Physical Exam: General: Awake, conversant Heart: S1, S2/regular rate and rhythm, no murmur rubs or gallops Lungs: Clear to auscultation bilaterally. Normal effort Abdomen: Soft/nontender/nondistended. No hepatosplenomegaly Extremities: No clubbing/cyanosis. No edema Behavior: Appropriate, cooperative Results & Data Results & Data Vital Signs (Past 12 Hours) Vital Signs Temp Pulse Pulse Resp BP Pulse Ox O2 Del Method 10/16/24 10:40 36.4 C L 80 16 104/69 97 Room Air 10/16/24 07:45 Room Air 10/16/24 07:08 36.6 C 87 14 133/70 97 Room Air 10/16/24 07:05 94 H 10/16/24 04:02 36.5 C 87 20 129/80 97 Room Air Laboratory Results Abnormal lab results 10/12/24 10/15/24 10/16/24 Range/Units 21:12 19:08 06:57 Hgb 8.5 L 8.6 L (12.0-16.0) g/dl Hct 25.4 L 25.5 L (37.0-47.0) % Crossmatch See Detail PG Care Time/CCT Total # of Minutes Spent Total Time Spent with Patient: Total time spent is greater than 50% in coordination of care (as documented) at patient's floor/unit and/or counseling patient: Coding Level of Care Code 74902 SUB INP/OBS CARE 35MIN Diagnoses GI bleed K92.2 Fracture of head of humerus S42.291A Encounter type: initial encounter Fracture type: closed Laterality: right Fall W19.XXXA Encounter type: initial encounter (2) Fracture of head of humerus Encounter type: initial encounter Fracture type: closed Laterality: right Qualified Code(s): S42.291A - Other displaced fracture of upper end of right humerus, initial encounter for closed fracture (3) Fall Encounter type: initial encounter Qualified Code(s): W19.XXXA - Unspecified fall, initial encounter
[2024-10-16 13:01] LABS: Hematocrit (blood only) 29.8 % (37.0-47.0); Hemoglobin 9.8 g/dl (12.0-16.0)
--- NOTE | 2024-10-16 16:14 | Gastroenterology Progress Note ---
Date of Service October 16, 2024 Assessment & Plan (1) Upper gastrointestinal hemorrhage: Plan: I am surprised at the jump in the hemoglobin and wonder if that could be lab error. However through these "bloody bowel movements" her hemoglobin has remained stable and even penny without transfusion. It is possible this is just hemorrhoidal bleeding and not related to her ulcers because to have marroon/red stools coming from duodenum the bleeding would be massive. For now we will continue to watch her blood count. Admission and Anticipated Discharge Date Admission Date: October 13, 2024 Subjective Called this morning with bloody bowel movement. None since then. Hgb 8.5 this morning and 9.8 this afternoon. No transfusions since 10/14. She feels well Physical Exam Physical Exam: She looks well and is happy Results & Data Vital Signs (Past 12 Hours) Vital Signs Temp Pulse Pulse Resp BP Pulse Ox O2 Del Method 10/16/24 15:53 36.4 C L 85 16 131/84 100 Room Air 10/16/24 14:13 95 H 10/16/24 12:38 36.3 C L 80 16 125/78 99 Room Air 10/16/24 10:40 36.4 C L 80 16 104/69 97 Room Air 10/16/24 07:45 Room Air 10/16/24 07:08 36.6 C 87 14 133/70 97 Room Air 10/16/24 07:05 94 H
[2024-10-16 21:21] LABS: Hematocrit (blood only) 24.6 % (37.0-47.0); Hemoglobin 8.4 g/dl (12.0-16.0)
[2024-10-17] MEDS: ACETAMINOPHEN 1,000 MG/100 ML VIAL IV STA (03:21)
[2024-10-17 06:59] LABS: Hematocrit (blood only) 25.1 % (37.0-47.0); Hemoglobin 8.4 g/dl (12.0-16.0)
--- NOTE | 2024-10-17 12:41 | Gastroenterology Progress Note ---
Date of Service October 17, 2024 Assessment & Plan (1) Upper gastrointestinal hemorrhage: Plan: She is doing well. Seems to have stopped bleeding. Hopefully home soon Admission and Anticipated Discharge Date Admission Date: October 13, 2024 Subjective looks well. Has not passed any blood or stool today. Obviously result yesterda y afternoon was wrong and has been replaced with a hemoglobin that fits the patter. It remains stable Physical Exam Constitutional: WD/WN, vitals as above Results & Data Vital Signs (Past 12 Hours) Vital Signs Temp Pulse Pulse Resp BP Pulse Ox O2 Del Method 10/17/24 11:36 36.3 C L 78 20 143/76 H 100 Room Air 10/17/24 08:42 Room Air 10/17/24 07:47 36.6 C 83 20 135/82 96 Room Air 10/17/24 07:22 86 10/17/24 03:34 36.3 C L 81 18 119/68 98 Room Air
--- NOTE | 2024-10-17 13:06 | Hospitalist Progress Note ---
Date of Service October 17, 2024 Assessment & Plan (1) GI bleed: (2) Fracture of head of humerus: (3) Fall: Plan GI bleed/acute blood loss anemia due to GI bleed from bleeding duodenal ulcers - Per patient several dark BMs, feeling feint, weak, and dizzy Stool guaiac positive -Hemoglobin dropped to 6.6. Patient received 2 units of blood transfusion. Posttransfusion hemoglobin was stable in the nines range - Maintain 2 large bore IVs - GI on board. EGD completed 10/14. EGD showed 2 deep duodenal ulcers that were not actively bleeding at the time of EGD but had clot on them. Continue p.o. Protonix Hemoglobin dropped and patient received transfusion overnight 10/14. She had a few bloody bowel movements with stable hemoglobin on 10/16 GI was informed. With continuing bloody bowel movements despite stable hemoglobin, likely lower GI bleed. Patient had a colonoscopy in February. GI recommends observing for now. H&H continued to stay stable. Vital signs continues to stay stable. Advance to a full liquid diet today Humerus head/neck fracture/Fall - Met with orthopedics on Tuesday -Ortho appointment 10/15 will need to be rescheduled - CK mildly elevated at 235 - Consider PT/OT if weakness not improving Cutaneous lupus Continue hydroxychloroquine Admission and Anticipated Discharge Date Admission Date: October 13, 2024 Subjective Patient was seen and examined at 10:20 AM. She continues to feel well overall. She had some bloody bowel movements yesterday but none today so far. Her hemoglobin has stayed stable. Review of Systems Review of Systems: All systems reviewed & are unremarkable except as noted in Subjective Physical Exam Physical Exam: General: Awake, conversant Heart: S1, S2/regular rate and rhythm, no murmur rubs or gallops Lungs: Clear to auscultation bilaterally. Normal effort Abdomen: Soft/nontender/nondistended. No hepatosplenomegaly Extremities: No clubbing/cyanosis. No edema Behavior: Appropriate, cooperative Results & Data Results & Data Vital Signs (Past 12 Hours) Vital Signs Temp Pulse Pulse Resp BP Pulse Ox O2 Del Method 10/17/24 11:36 36.3 C L 78 20 143/76 H 100 Room Air 10/17/24 08:42 Room Air 10/17/24 07:47 36.6 C 83 20 135/82 96 Room Air 10/17/24 07:22 86 10/17/24 03:34 36.3 C L 81 18 119/68 98 Room Air Laboratory Results Abnormal lab results 10/16/24 10/17/24 Range/Units 20:46 06:12 Hgb 8.4 L 8.4 L (12.0-16.0) g/dl Hct 24.6 L 25.1 L (37.0-47.0) % PG Care Time/CCT Total # of Minutes Spent Total Time Spent with Patient: Total time spent is greater than 50% in coordination of care (as documented) at patient's floor/unit and/or counseling patient: Coding Level of Care Code 46910 SUB INP/OBS CARE 235MIN Diagnoses GI bleed K92.2 Fracture of head of humerus S42.291A Encounter type: initial encounter Fracture type: closed Laterality: right Fall W19.XXXA Encounter type: initial encounter (2) Fracture of head of humerus Encounter type: initial encounter Fracture type: closed Laterality: right Qualified Code(s): S42.291A - Other displaced fracture of upper end of right humerus, initial encounter for closed fracture (3) Fall Encounter type: initial encounter Qualified Code(s): W19.XXXA - Unspecified fall, initial encounter
[2024-10-17 15:55] LABS: Hematocrit (blood only) 24.5 % (37.0-47.0); Hemoglobin 8.1 g/dl (12.0-16.0)
[2024-10-18 06:30] LABS: Basophils # (auto) 0.06 K/uL (0.00-0.20); Basophils % (auto) 0.7 %; Eosinophils # (auto) 0.36 K/uL (0.00-0.50); Hematocrit (blood only) 24.5 % (37.0-47.0); Immature Granulocytes # (auto) 0.06 K/uL (0.01-0.20); Immature Granulocytes % (auto) 0.7 %; Lymphocytes # (auto) 2.05 K/uL (1.20-3.40); Mean Corpuscular Hemoglobin 30.3 pg (25.0-34.0); Mean Corpuscular Hgb Conc 32.7 g/dL (32.0-36.0); Mean Corpuscular Volume 92.8 fL (80.0-100.0); Mean Platelet Volume 9.2 fL (9.4-12.4); Monocytes # (auto) 0.62 K/uL (0.11-0.59); Neutrophils # (auto) 5.75 K/uL (1.40-6.50); Neutrophils % (auto) 64.6 %; Platelet Count 356 K/uL (130-400); RDW Coefficient of Variation 14.7 % (11.5-14.5); RDW Standard Deviation 48.8 fL (36.4-46.3); Red Blood Count 2.64 M/uL (4.20-5.40)
[2024-10-18 07:30] VITALS: RESP 18
[2024-10-18] MEDS: ACETAMINOPHEN 325 MG TAB PO PRN (09:14)
[2024-10-18 11:16] VITALS: O2SAT 98
--- NOTE | 2024-10-18 13:53 | Discharge Summary ---
Date of Service October 18, 2024 Admission HPI Per Admitting Provider No further bleeding. No bowel movements Admission Exam Per Admitting Provider Physical Exam: She looks well Constitutional: WD/WN, vitals as above Neck: trachea midline, no thyromegaly Respiratory: normal respiratory effort, lungs clear to auscultation Cardiovascular: RRR, no murmur, no edema Gastrointestinal (Abdomen): normal bowel sounds, soft, nontender, no hepatosp lenomegaly Principal Diagnosis Acute blood loss anemia due to bleeding duodenal ulcers Fall Right humerus fracture Discharge Exam General: Awake, conversant Heart: S1, S2/regular rate and rhythm, no murmur rubs or gallops Lungs: Clear to auscultation bilaterally. Normal effort Abdomen: Soft/nontender/nondistended. No hepatosplenomegaly Extremities: No clubbing/cyanosis. No edema Behavior: Appropriate, cooperative Discharge Data Allergies Allergy/AdvReac Type Severity Reaction Status Date / Time codeine Allergy Mild itching Verified 09/27/24 09:16 Consultations 10/12/24 22:14 ED Decision to Admit Stat 10/13/24 01:15 Consult Gastroenterology Routine Procedures Performed Operation Date: 10/14/24 08:00 Actual Procedures p Esophagogastroduodenoscopy(Not Applicable) - Vikram Foreman Jr, MD Hospital Course (1) GI bleed: (2) Fracture of head of humerus: (3) Fall: Plan GI bleed/acute blood loss anemia due to GI bleed from bleeding duodenal ulcers - Per patient several dark BMs, feeling feint, weak, and dizzy Stool guaiac positive -Hemoglobin dropped to 6.6. Patient received 2 units of blood transfusion. Posttransfusion hemoglobin was stable in the nines range - Maintain 2 large bore IVs - GI on board. EGD completed 10/14. EGD showed 2 deep duodenal ulcers that were not actively bleeding at the time of EGD but had clot on them. Continue p.o. Protonix Hemoglobin dropped and patient received transfusion again 10/14. She had a few bloody bowel movements with stable hemoglobin on 10/16 and 10/17 GI was informed. With continuing bloody bowel movements despite stable hemoglobin, likely lower GI bleed (hemorrhoidal bleed). Patient had a colonoscopy in February. GI recommends monitoring. H&H continued to stay stable. Vital signs continues to stay stable. Patient tolerated a solid diet GI cleared the patient for discharge today Humerus head/neck fracture/Fall - Met with orthopedics on Tuesday -Ortho appointment 10/15 will need to be rescheduled - CK mildly elevated at 235 - Consider PT/OT if weakness not improving Cutaneous lupus Continue hydroxychloroquine Total Time Total Time Spent Total Time Spent (In Minutes): 35 Discharge Plan Discharge Items Patient Disposition: Home - Self-Care Reason For Visit: GI BLEED Discharge Diagnosis: Acute blood loss anemia due to bleeding duodenal ulcers Fall Right humerus fracture Activity: Resume your previous activity Non-emergency contact: Primary Care Provider Call non-emergency contact if: you have any medication questions and your symptoms worsen Follow-up/Referrals: Key Berry DO [Primary Care Provider] - 10/22/24 4:05 pm Diet: Heart Healthy Addtl Attending Provider Instructions: Advised to follow-up with PCP in 1 week Advised to follow-up with orthopedics in 1 week Advised to avoid any [id number] nonsteroidal pain medications like Advil, Aleve, ibuprofen, Motrin, naproxen, Naprosyn Pending Studies at Discharge: No Stand-Alone Forms: My [facility] Medications and DC Order Prescriptions: New pantoprazole 40 mg Tablet,Delayed Release (Dr/Ec) 40 mg PO DAILY 30 Days Qty: 30 0RF Continued metformin 500 mg tablet 1,000 mg PO DAILY sertraline [Zoloft] 25 mg tablet 25 mg PO DAILY lisinopril 20 mg tablet 20 mg PO DAILY bacitracin 500 unit/gram ointment 1 applic topical BID PRN (Reason: Rash) hydroxychloroquine [Plaquenil] 200 mg tablet 200 mg PO QAM Discharge Orders: Discharge Order (Routine); Ordered 10/18/24 Ordered By: Patricia Mims Admission Data Admit Date/Time: 10/13/24 11:17 Attending Provider: Patricia Mims Admit Provider: Patricia Mims Primary Care Provider: Key Berry Other Providers: Hortencia Duran Wilmot C. Jr
[2024-10-18 15:32] VITALS: BP 120/65; PULSE 84; TEMP 97.5
== END 2024-10-18 16:54 | disposition home or self-care (01) | DRG 378 ==
LOC: ED 19:00 → 2N 19:00 → SUATTDRO 23:24 → 2N 10-13 00:13